=== PATIENT | male | born 1990 | race African-American/Black ===

== ENCOUNTER 2018-03-07 23:05 | Inpatient (IN) | payer SELFPAY ==
[2018-03-08] MEDS: MORPHINE 4 MG/ML 1ML VIAL/SYRINGE (J2270) IV ×11 (00:25→22:02)
[2018-03-08] MEDS: NS 1,000 ML IV ×5 (00:26→21:12)
[2018-03-08 00:49] LABS: ALBUMIN 3.9 GM/DL (3.2-5.2); ALBUMIN/GLOBULIN RATIO 1.05 (1.00-1.93); ALKALINE PHOSPHATASE 77 U/L (45-117); ALT/SGPT 37 U/L (12-78); AMYLASE 81 U/L (25-115); ANION GAP 12 MEQ/L (8-16); AST/SGOT 52 U/L (7-37); BILIRUBIN,DIRECT 0.1 MG/DL (0.0-0.2); BILIRUBIN,TOTAL 0.4 MG/DL (0.2-1.0); BLOOD UREA NITROGEN 6 MG/DL (7-18); CALCIUM LEVEL 8.8 MG/DL (8.5-10.1); CARBON DIOXIDE LEVEL 20 MEQ/L (21-32); CHLORIDE LEVEL 107 MEQ/L (98-107); CREATININE FOR GFR 1.04 MG/DL (0.70-1.30); GLOMERULAR FILTRATION RATE > 60.0 (>60); GLUCOSE, FASTING 161 MG/DL (70-100); LIPASE 113 U/L (73-393); POTASSIUM SERUM 4.1 MEQ/L (3.5-5.1); SODIUM LEVEL 139 MEQ/L (136-145); TOTAL PROTEIN 7.6 GM/DL (6.4-8.2)
[2018-03-08] MEDS ORDERED: ISOVUE-370 76% 100ML VIAL (Q9967) As Ordered (01:01)
[2018-03-08 01:17] LABS: BASO % 0.3 % (0.0-1.0); EOS # 0.1 10^3/uL (0.0-0.50); EOS % 0.8 % (0.0-3.0); HEMATOCRIT 39.8 % (42.0-52.0); HEMOGLOBIN 14.6 g/dl (13.5-17.5); IMMATURE GRANULOCYTE % 0.9 % (0-3.0); LYMPH # 2.6 10^3/uL (1.5-6.5); LYMPH % 28.3 % (24.0-44.0); MEAN CORPUSCULAR HGB CONC 36.7 g/dl (32.0-36.5); MONO # 0.7 10^3/uL (0.0-0.8); MONO % 7.4 % (0.0-5.0); NEUTROPHILS # 5.7 10^3/uL (1.8-7.7); NEUTROPHILS % 62.3 % (36.0-66.0); PLATELET COUNT, AUTOMATED 280 10^3/uL (150-450); RED BLOOD COUNT 4.06 10^6/uL (4.30-6.10); RED CELL DISTRIBUTION WIDTH 14.1 % (11.5-14.5); WHITE BLOOD COUNT 9.2 10^3/uL (4.0-10.0)
[2018-03-08] MEDS: HYDROMORPHONE HCL 0.5 MG/ 0.5 ML SYRINGE (J1170 PER 1) IV (02:11)
[2018-03-08 02:16] LABS: KETONE, URINE AUTO RFX NEGATIVE (NEGATIVE); LEUKOCYTE ESTERASE UR AUTO RFX NEGATIVE (NEGATIVE); NITRITE, URINE AUTO RFX NEGATIVE (NEGATIVE); RBC, URINE AUTO RFX 1 /HPF (0-3); SPECIFIC GRAVITY UR AUTO RFX 1.049 (1.002-1.035); SQUAM EPITHELIAL CELL UR AURFX 0 /HPF (0-6); WBC, URINE AUTO RFX 0 /HPF (0-3)
[2018-03-08] MEDS: KETOROLAC 30 MG/ML VIAL (J1885) IV ×3 (03:22→23:35)
[2018-03-08 07:45] LABS: LACTIC ACID SEPSIS PROTOCOL 1.4 MMOL/L (0.4-2.0)
[2018-03-08 07:45] LABS: CHOLESTEROL LEVEL 230 MG/DL (<200); CHOLESTEROL RISK RATIO 3.194 (<5); HDL CHOLESTEROL 72 MG/DL (>40); LDL CHOLESTEROL 91.6 MG/DL (<100); NON-HDL-C 158 MG/DL; TRIGLYCERIDES LEVEL 332 MG/DL (<150)
[2018-03-08] MEDS: BACITRACIN OINT 30GM TOP ×2 (09:00→21:17)
[2018-03-08 11:52] LABS: AMYLASE 70 U/L (25-115); LIPASE 101 U/L (73-393)
[2018-03-08 12:28] LABS: AMPHETAMINES LEVEL URINE NEGATIVE (NEGATIVE); BARBITURATES URINE NEGATIVE (NEGATIVE); BENZODIAZEPINES URINE NEGATIVE (NEGATIVE); CANNABINOIDS URINE POSITIVE (NEGATIVE); COCAINE METABOLITE URINE NEGATIVE (NEGATIVE); METHADONE URINE NEGATIVE (NEGATIVE); OPIATES URINE POSITIVE (NEGATIVE); PHENCYCLIDINE URINE NEGATIVE (NEGATIVE)
[2018-03-08] MEDS ORDERED: PERCOCET 5MG/325MG TAB PO (12:45)
[2018-03-08] MEDS: ONDANSETRON 4MG/2ML VIAL (J2405) IV ×2 (13:01→22:02)
[2018-03-08] MEDS: PERCOCET 5MG/325MG TAB PO ×3 (13:03→21:18)
[2018-03-08] MEDS: LISINOPRIL 10 MG TAB PO (15:15)
[2018-03-08] MEDS: METOCLOPRAMIDE INJ 10MG/2ML VIAL (J2765) IV (17:15)
[2018-03-09] MEDS: MORPHINE 4 MG/ML 1ML VIAL/SYRINGE (J2270) IV ×8 (00:14→22:07)
[2018-03-09] MEDS: PERCOCET 5MG/325MG TAB PO ×6 (01:16→23:48)
[2018-03-09 06:06] LABS: HEMATOCRIT 36.4 % (42.0-52.0); HEMOGLOBIN 12.8 g/dl (13.5-17.5); MEAN CORPUSCULAR HEMOGLOBIN 35.5 pg (27.0-33.0); MEAN CORPUSCULAR HGB CONC 35.2 g/dl (32.0-36.5); MEAN CORPUSCULAR VOLUME 100.8 fl (80.0-96.0); PLATELET COUNT, AUTOMATED 241 10^3/uL (150-450); RED BLOOD COUNT 3.61 10^6/uL (4.30-6.10); RED CELL DISTRIBUTION WIDTH 14.4 % (11.5-14.5)
[2018-03-09] MEDS: ONDANSETRON 4MG/2ML VIAL (J2405) IV ×5 (06:07→23:53)
[2018-03-09 06:21] LABS: ANION GAP 7 MEQ/L (8-16); BLOOD UREA NITROGEN 5 MG/DL (7-18); CALCIUM LEVEL 8.3 MG/DL (8.5-10.1); CARBON DIOXIDE LEVEL 24 MEQ/L (21-32); CHLORIDE LEVEL 111 MEQ/L (98-107); CREATININE FOR GFR 0.84 MG/DL (0.70-1.30); GLOMERULAR FILTRATION RATE > 60.0 (>60); GLUCOSE, FASTING 95 MG/DL (70-100); LIPASE 225 U/L (73-393); POTASSIUM SERUM 3.8 MEQ/L (3.5-5.1); SODIUM LEVEL 142 MEQ/L (136-145)
[2018-03-09] MEDS: NS 1,000 ML IV ×2 (06:46→17:03)
[2018-03-09] MEDS: BACITRACIN OINT 30GM TOP ×2 (07:56→19:49)
[2018-03-09] MEDS: LISINOPRIL 10 MG TAB PO (07:56)
[2018-03-09] MEDS ORDERED: ISOVUE-370 76% 100ML VIAL (Q9967) As Ordered (08:04)
[2018-03-09] MEDS: KETOROLAC 30 MG/ML VIAL (J1885) IV ×2 (10:49→17:01)
[2018-03-10] MEDS: PERCOCET 5MG/325MG TAB PO ×5 (05:58→22:37)
[2018-03-10] MEDS: ONDANSETRON 4MG/2ML VIAL (J2405) IV ×2 (05:58→10:00)
[2018-03-10] MEDS: NS 1,000 ML IV ×3 (07:00→22:39)
[2018-03-10 08:08] LABS: HEMATOCRIT 36.1 % (42.0-52.0); HEMOGLOBIN 12.7 g/dl (13.5-17.5); MEAN CORPUSCULAR HEMOGLOBIN 35.5 pg (27.0-33.0); MEAN CORPUSCULAR HGB CONC 35.2 g/dl (32.0-36.5); MEAN CORPUSCULAR VOLUME 100.8 fl (80.0-96.0); PLATELET COUNT, AUTOMATED 242 10^3/uL (150-450); RED BLOOD COUNT 3.58 10^6/uL (4.30-6.10); RED CELL DISTRIBUTION WIDTH 14.4 % (11.5-14.5); WHITE BLOOD COUNT 8.7 10^3/uL (4.0-10.0)
[2018-03-10 08:56] LABS: ALBUMIN 3.4 GM/DL (3.2-5.2); ALBUMIN/GLOBULIN RATIO 0.92 (1.00-1.93); ALKALINE PHOSPHATASE 48 U/L (45-117); ALT/SGPT 26 U/L (12-78); ANION GAP 10 MEQ/L (8-16); AST/SGOT 40 U/L (7-37); BILIRUBIN,TOTAL 0.6 MG/DL (0.2-1.0); BLOOD UREA NITROGEN 5 MG/DL (7-18); CALCIUM LEVEL 8.2 MG/DL (8.5-10.1); CARBON DIOXIDE LEVEL 25 MEQ/L (21-32); CHLORIDE LEVEL 105 MEQ/L (98-107); CREATININE FOR GFR 0.82 MG/DL (0.70-1.30); GLOMERULAR FILTRATION RATE > 60.0 (>60); GLUCOSE, FASTING 82 MG/DL (70-100); LIPASE 96 U/L (73-393); POTASSIUM SERUM 3.4 MEQ/L (3.5-5.1); SODIUM LEVEL 140 MEQ/L (136-145); TOTAL PROTEIN 7.1 GM/DL (6.4-8.2)
[2018-03-10] MEDS: LISINOPRIL 10 MG TAB PO (09:34)
[2018-03-10] MEDS: BACITRACIN OINT 30GM TOP ×2 (09:34→21:27)
[2018-03-10] MEDS: MORPHINE 4 MG/ML 1ML VIAL/SYRINGE (J2270) IV (09:35)
[2018-03-10 14:41] LABS: BEDSIDE GLUCOSE 176 MG/DL (70-105)
[2018-03-10] MEDS: NICOTINE 21MG/24HR 1 EA TRANSDERMAL TD (18:20)
[2018-03-10] MEDS: ONDANSETRON 4 MG TAB (S0181) PO (18:20)
[2018-03-11] MEDS: PERCOCET 5MG/325MG TAB PO ×3 (04:20→12:57)
[2018-03-11 06:39] LABS: HEMATOCRIT 33.2 % (42.0-52.0); HEMOGLOBIN 11.9 g/dl (13.5-17.5); MEAN CORPUSCULAR HEMOGLOBIN 35.3 pg (27.0-33.0); MEAN CORPUSCULAR HGB CONC 35.8 g/dl (32.0-36.5); MEAN CORPUSCULAR VOLUME 98.5 fl (80.0-96.0); PLATELET COUNT, AUTOMATED 261 10^3/uL (150-450); RED BLOOD COUNT 3.37 10^6/uL (4.30-6.10); RED CELL DISTRIBUTION WIDTH 14.1 % (11.5-14.5); WHITE BLOOD COUNT 6.2 10^3/uL (4.0-10.0)
[2018-03-11 07:06] LABS: ANION GAP 9 MEQ/L (8-16); BLOOD UREA NITROGEN 3 MG/DL (7-18); CALCIUM LEVEL 7.9 MG/DL (8.5-10.1); CARBON DIOXIDE LEVEL 26 MEQ/L (21-32); CHLORIDE LEVEL 106 MEQ/L (98-107); CREATININE FOR GFR 0.77 MG/DL (0.70-1.30); GLOMERULAR FILTRATION RATE > 60.0 (>60); GLUCOSE, FASTING 84 MG/DL (70-100); POTASSIUM SERUM 3.4 MEQ/L (3.5-5.1); SODIUM LEVEL 141 MEQ/L (136-145)
[2018-03-11] MEDS: NICOTINE 21MG/24HR 1 EA TRANSDERMAL TD (08:55)
[2018-03-11] MEDS: BACITRACIN OINT 30GM TOP (08:55)
[2018-03-11] MEDS: LISINOPRIL 10 MG TAB PO (15:46)
== END 2018-03-11 17:20 | disposition home health service (06) | DRG 282 ==
LOC: M ED 23:05 → M MS5PR 03-10 18:30 → M ED INP 03-08 02:29 → M MS5PR 03-08 10:10
PROVIDERS: Internal Medicine
DX: K85.90 Acute pancreatitis without necrosis or infection, unspecified (principal); K76.89 Other specified diseases of liver; E66.01 Morbid (severe) obesity due to excess calories; R03.0 Elevated blood-pressure reading, without diagnosis of hypertension; Z68.38 Body mass index [BMI] 38.0-38.9, adult; K86.0 Alcohol-induced chronic pancreatitis

== ENCOUNTER 2018-06-04 14:10 | Inpatient (IN) | payer SELFPAY ==
[2018-06-04] MEDS: NS 1,000 ML IV (15:02)
[2018-06-04] MEDS: ONDANSETRON 4MG/2ML VIAL (J2405) IV (15:04)
[2018-06-04] MEDS: MORPHINE 4 MG/ML 1ML VIAL/SYRINGE (J2270) IV ×3 (15:07→16:57)
[2018-06-04 15:32] LABS: BASO # 0.1 10^3/uL (0.0-0.2); BASO % 0.4 % (0.0-1.0); EOS # 0.2 10^3/uL (0.0-0.50); EOS % 1.5 % (0.0-3.0); HEMATOCRIT 37.9 % (42.0-52.0); HEMOGLOBIN 13.4 g/dl (13.5-17.5); IMMATURE GRANULOCYTE % 0.7 % (0-3.0); LYMPH % 15.9 % (24.0-44.0); MEAN CORPUSCULAR HGB CONC 35.4 g/dl (32.0-36.5); MEAN CORPUSCULAR VOLUME 104.7 fl (80.0-96.0); MONO # 0.7 10^3/uL (0.0-0.8); MONO % 5.9 % (0.0-5.0); NEUTROPHILS # 9.3 10^3/uL (1.8-7.7); NEUTROPHILS % 75.6 % (36.0-66.0); PLATELET COUNT, AUTOMATED 280 10^3/uL (150-450); RED BLOOD COUNT 3.62 10^6/uL (4.30-6.10); RED CELL DISTRIBUTION WIDTH 15.1 % (11.5-14.5); WHITE BLOOD COUNT 12.3 10^3/uL (4.0-10.0)
[2018-06-04 15:42] LABS: INR 0.98
[2018-06-04 15:43] LABS: PARTIAL THROMBOPLASTIN TIME 26.1 SECONDS (25.4-37.6)
[2018-06-04 16:04] LABS: LACTIC ACID SEPSIS PROTOCOL 2.2 MMOL/L (0.4-2.0)
[2018-06-04 16:18] LABS: ALBUMIN 3.9 GM/DL (3.2-5.2); ALBUMIN/GLOBULIN RATIO 1.11 (1.00-1.93); ALKALINE PHOSPHATASE 58 U/L (45-117); ALT/SGPT 45 U/L (12-78); AMYLASE 112 U/L (25-115); ANION GAP 13 MEQ/L (8-16); AST/SGOT 53 U/L (7-37); BILIRUBIN,DIRECT 0.2 MG/DL (0.0-0.2); BILIRUBIN,TOTAL 0.5 MG/DL (0.2-1.0); BLOOD UREA NITROGEN 8 MG/DL (7-18); CALCIUM LEVEL 9.1 MG/DL (8.5-10.1); CARBON DIOXIDE LEVEL 21 MEQ/L (21-32); CHLORIDE LEVEL 103 MEQ/L (98-107); CK-MB VALUE MASS < 1.0 NG/ML (<3.6); CPK CREATINE PHOSPHOKINASE 356 U/L (39-308); CREATININE FOR GFR 0.97 MG/DL (0.70-1.30); ETHYL ALCOHOL (ETHANOL) 0.051 % (0.000-0.010); GLOMERULAR FILTRATION RATE > 60.0 (>60); GLUCOSE, FASTING 138 MG/DL (70-100); LIPASE 1526 U/L (73-393); MB/CK RELATIVE INDEX 0.28 (< OR =4); SODIUM LEVEL 137 MEQ/L (136-145); TOTAL PROTEIN 7.4 GM/DL (6.4-8.2); TROPONIN I < 0.02 NG/ML (< 0.10)
[2018-06-04] MEDS ORDERED: ISOVUE-370 76% 100ML VIAL (Q9967) As Ordered (16:24)
[2018-06-04 16:27] LABS: AMPHETAMINES LEVEL URINE NEGATIVE (NEGATIVE); BARBITURATES URINE NEGATIVE (NEGATIVE); BENZODIAZEPINES URINE NEGATIVE (NEGATIVE); CANNABINOIDS URINE POSITIVE (NEGATIVE); COCAINE METABOLITE URINE NEGATIVE (NEGATIVE); METHADONE URINE NEGATIVE (NEGATIVE); OPIATES URINE POSITIVE (NEGATIVE); PHENCYCLIDINE URINE NEGATIVE (NEGATIVE)
[2018-06-04] MEDS: KCL 20MEQ in NS 1000ML 1,000 ML IV ×3 (16:49→21:01)
[2018-06-04 17:01] LABS: MAGNESIUM LEVEL 1.7 MG/DL (1.8-2.4)
[2018-06-04] MEDS ORDERED: HYDROMORPHONE HCL 0.5 MG/ 0.5 ML SYRINGE (J1170 PER 1) IV (17:45)
[2018-06-04] MEDS: HYDROmorphone HCL 2 MG/ML 1ML VIAL (J1170) IV ×2 (18:38→21:31)
[2018-06-04] MEDS: MAG SULF 1GM/100ML (MAG RUN) 1 GM in APPROPRIATE DILUENT 1 EA IV (18:38)
[2018-06-04] MEDS: MULTIVITAMINS/MINERALS THERAP 1 TAB PO (18:39)
[2018-06-04] MEDS: FOLIC ACID 1 MG TAB PO (18:39)
[2018-06-04] MEDS: THIAMINE 100 MG TAB PO (18:39)
[2018-06-04 18:50] LABS: FERRITIN 438 NG/ML (26-388); IRON (FE) 34 UG/DL (65-175); PERCENT SATURATION 12.6 % (19.7-50.0); TOTAL IRON BINDING CAPACITY 270 UG/DL (250-450)
[2018-06-04 18:57] LABS: FOLATE 9.1 NG/ML; VITAMIN B12 LEVEL 432 PG/ML
[2018-06-04 19:27] LABS: ERYTHROCYTE SEDIMENTATION RATE 25 mm/hr (0-15)
[2018-06-04 19:51] LABS: CHOLESTEROL LEVEL 237 MG/DL (<200); CHOLESTEROL RISK RATIO 1.781 (<5); HDL CHOLESTEROL 133 MG/DL (>40); LDL CHOLESTEROL 81 MG/DL (<100); NON-HDL-C 104 MG/DL; TRIGLYCERIDES LEVEL 115 MG/DL (<150)
[2018-06-04] MEDS ORDERED: INFLUENZA QUADRIVALENT PF VACCINE 0.5ML SYRINGE (90686) IM (20:00)
[2018-06-04] MEDS: LORazepam 2 MG TAB PO (21:01)
[2018-06-04 23:33] LABS: CK-MB VALUE MASS < 1.0 NG/ML (<3.6); CPK CREATINE PHOSPHOKINASE 308 U/L (39-308); MB/CK RELATIVE INDEX 0.32 (< OR =4); TROPONIN I < 0.02 NG/ML (< 0.10)
[2018-06-05] MEDS: HYDROmorphone HCL 2 MG/ML 1ML VIAL (J1170) IV ×8 (00:30→23:19)
[2018-06-05] MEDS: LORazepam 2 MG TAB PO ×2 (01:20→20:55)
[2018-06-05] MEDS: KCL 20MEQ in NS 1000ML 1,000 ML IV ×2 (01:20→07:00)
[2018-06-05] MEDS: **hydrALAZINE HCL** 25 MG TAB PO (02:52)
[2018-06-05 07:09] LABS: BASO % 0.2 % (0.0-1.0); EOS # 0.1 10^3/uL (0.0-0.50); EOS % 0.7 % (0.0-3.0); HEMATOCRIT 37.4 % (42.0-52.0); LYMPH % 9.5 % (24.0-44.0); MEAN CORPUSCULAR HEMOGLOBIN 37.7 pg (27.0-33.0); MEAN CORPUSCULAR HGB CONC 34.8 g/dl (32.0-36.5); MEAN CORPUSCULAR VOLUME 108.4 fl (80.0-96.0); MONO # 0.6 10^3/uL (0.0-0.8); MONO % 5.9 % (0.0-5.0); NEUTROPHILS # 8.8 10^3/uL (1.8-7.7); NEUTROPHILS % 82.7 % (36.0-66.0); PLATELET COUNT, AUTOMATED 263 10^3/uL (150-450); RED BLOOD COUNT 3.45 10^6/uL (4.30-6.10); WHITE BLOOD COUNT 10.6 10^3/uL (4.0-10.0)
[2018-06-05 07:37] LABS: ALBUMIN 3.7 GM/DL (3.2-5.2); ALBUMIN/GLOBULIN RATIO 1.06 (1.00-1.93); ALKALINE PHOSPHATASE 47 U/L (45-117); ALT/SGPT 37 U/L (12-78); ANION GAP 9 MEQ/L (8-16); AST/SGOT 45 U/L (7-37); BILIRUBIN,TOTAL 0.5 MG/DL (0.2-1.0); BLOOD UREA NITROGEN 9 MG/DL (7-18); CALCIUM LEVEL 8.2 MG/DL (8.5-10.1); CARBON DIOXIDE LEVEL 21 MEQ/L (21-32); CHLORIDE LEVEL 109 MEQ/L (98-107); CPK CREATINE PHOSPHOKINASE 281 U/L (39-308); CREATININE FOR GFR 0.86 MG/DL (0.70-1.30); GLOMERULAR FILTRATION RATE > 60.0 (>60); GLUCOSE, FASTING 114 MG/DL (70-100); LIPASE 3089 U/L (73-393); MB/CK RELATIVE INDEX 0.39 (< OR =4); POTASSIUM SERUM 4.2 MEQ/L (3.5-5.1); SODIUM LEVEL 139 MEQ/L (136-145); TOTAL PROTEIN 7.2 GM/DL (6.4-8.2); TROPONIN I < 0.02 NG/ML (< 0.10)
[2018-06-05] MEDS: MULTIVITAMINS/MINERALS THERAP 1 TAB PO (07:55)
[2018-06-05] MEDS: LISINOPRIL 5 MG TAB PO ×2 (07:55→09:13)
[2018-06-05] MEDS: THIAMINE 100 MG TAB PO (07:56)
[2018-06-05] MEDS: ENOXAPARIN 40 MG/0.4 ML SYRINGE (J1650) SC (07:56)
[2018-06-05] MEDS: FOLIC ACID 1 MG TAB PO (07:56)
[2018-06-05] MEDS ORDERED: ONDANSETRON 4MG/2ML VIAL (J2405) IV (08:00)
[2018-06-05] MEDS: HYDROMORPHONE HCL 0.5 MG/ 0.5 ML SYRINGE (J1170 PER 1) IV (08:44)
[2018-06-05] MEDS: NS 1,000 ML IV ×4 (09:13→20:55)
[2018-06-05] MEDS: ONDANSETRON 4MG/2ML VIAL (J2405) IV ×2 (11:44→18:15)
[2018-06-05 15:57] LABS: CPK CREATINE PHOSPHOKINASE 284 U/L (39-308); MB/CK RELATIVE INDEX 0.35 (< OR =4); TROPONIN I < 0.02 NG/ML (< 0.10)
[2018-06-05] MEDS: CHLORASEPTIC SPRAY MT ×2 (20:03→23:19)
[2018-06-05] MEDS: LISINOPRIL 10 MG TAB PO (20:05)
[2018-06-05] MEDS ORDERED: NALOXONE INJ 0.4 MG/1 ML VIAL (J2310) IV (23:45)
[2018-06-06] MEDS: NS 1,000 ML IV ×4 (00:48→21:23)
[2018-06-06] MEDS: ONDANSETRON 4MG/2ML VIAL (J2405) IV ×3 (01:05→15:05)
[2018-06-06] MEDS: HYDROmorphone HCL 2 MG/ML 1ML VIAL (J1170) IV ×5 (03:04→15:05)
[2018-06-06] MEDS: **hydrALAZINE HCL** 25 MG TAB PO ×3 (03:21→21:26)
[2018-06-06] MEDS: LORazepam 2 MG TAB PO (04:36)
[2018-06-06 05:15] LABS: BASO % 0.2 % (0.0-1.0); EOS # 0.2 10^3/uL (0.0-0.50); EOS % 1.7 % (0.0-3.0); HEMATOCRIT 35.3 % (42.0-52.0); HEMOGLOBIN 12.2 g/dl (13.5-17.5); IMMATURE GRANULOCYTE % 0.7 % (0-3.0); LYMPH # 1.1 10^3/uL (1.5-6.5); LYMPH % 11.2 % (24.0-44.0); MEAN CORPUSCULAR HEMOGLOBIN 38.2 pg (27.0-33.0); MEAN CORPUSCULAR HGB CONC 34.6 g/dl (32.0-36.5); MEAN CORPUSCULAR VOLUME 110.7 fl (80.0-96.0); MONO # 0.8 10^3/uL (0.0-0.8); MONO % 8.5 % (0.0-5.0); NEUTROPHILS # 7.3 10^3/uL (1.8-7.7); NEUTROPHILS % 77.7 % (36.0-66.0); PLATELET COUNT, AUTOMATED 259 10^3/uL (150-450); RED BLOOD COUNT 3.19 10^6/uL (4.30-6.10); RED CELL DISTRIBUTION WIDTH 16.4 % (11.5-14.5); WHITE BLOOD COUNT 9.4 10^3/uL (4.0-10.0)
[2018-06-06 05:37] LABS: ALBUMIN 3.4 GM/DL (3.2-5.2); ALBUMIN/GLOBULIN RATIO 0.94 (1.00-1.93); ALKALINE PHOSPHATASE 47 U/L (45-117); ALT/SGPT 34 U/L (12-78); ANION GAP 6 MEQ/L (8-16); AST/SGOT 51 U/L (7-37); BILIRUBIN,TOTAL 0.4 MG/DL (0.2-1.0); BLOOD UREA NITROGEN 7 MG/DL (7-18); C REACTIVE PROTEIN QUANTITATIV 9.47 MG/DL (0.00-0.30); CALCIUM LEVEL 8.1 MG/DL (8.5-10.1); CARBON DIOXIDE LEVEL 22 MEQ/L (21-32); CHLORIDE LEVEL 108 MEQ/L (98-107); CREATININE FOR GFR 0.64 MG/DL (0.70-1.30); GLOMERULAR FILTRATION RATE > 60.0 (>60); GLUCOSE, FASTING 87 MG/DL (70-100); LIPASE 1643 U/L (73-393); MAGNESIUM LEVEL 2.1 MG/DL (1.8-2.4); POTASSIUM SERUM 3.9 MEQ/L (3.5-5.1); SODIUM LEVEL 136 MEQ/L (136-145)
[2018-06-06] MEDS: FOLIC ACID 1 MG TAB PO (08:06)
[2018-06-06] MEDS: MULTIVITAMINS/MINERALS THERAP 1 TAB PO (08:08)
[2018-06-06] MEDS: LISINOPRIL 10 MG TAB PO ×2 (08:12→21:28)
[2018-06-06] MEDS: amLODIPine 5 MG TAB PO (08:12)
[2018-06-06] MEDS: THIAMINE 100 MG TAB PO (08:13)
[2018-06-06] MEDS ORDERED: LISINOPRIL 10 MG TAB PO (09:00)
[2018-06-06] MEDS: ENOXAPARIN 40 MG/0.4 ML SYRINGE (J1650) SC (09:12)
[2018-06-06] MEDS: HYDROMORPHONE HCL 0.5 MG/ 0.5 ML SYRINGE (J1170 PER 1) IV ×2 (18:01→21:25)
[2018-06-07] MEDS: HYDROMORPHONE HCL 0.5 MG/ 0.5 ML SYRINGE (J1170 PER 1) IV ×4 (00:37→09:36)
[2018-06-07] MEDS: NS 1,000 ML IV ×3 (00:45→16:40)
[2018-06-07] MEDS: ONDANSETRON 4MG/2ML VIAL (J2405) IV ×3 (04:10→21:14)
[2018-06-07] MEDS: **hydrALAZINE HCL** 25 MG TAB PO (05:06)
[2018-06-07 06:33] LABS: BASO % 0.1 % (0.0-1.0); EOS # 0.2 10^3/uL (0.0-0.50); EOS % 2.1 % (0.0-3.0); HEMATOCRIT 34.1 % (42.0-52.0); HEMOGLOBIN 11.8 g/dl (13.5-17.5); IMMATURE GRANULOCYTE % 0.5 % (0-3.0); LYMPH # 1.3 10^3/uL (1.5-6.5); LYMPH % 15.4 % (24.0-44.0); MEAN CORPUSCULAR HEMOGLOBIN 36.9 pg (27.0-33.0); MEAN CORPUSCULAR HGB CONC 34.6 g/dl (32.0-36.5); MEAN CORPUSCULAR VOLUME 106.6 fl (80.0-96.0); MONO # 0.7 10^3/uL (0.0-0.8); MONO % 7.9 % (0.0-5.0); NEUTROPHILS # 6.1 10^3/uL (1.8-7.7); PLATELET COUNT, AUTOMATED 299 10^3/uL (150-450); RED CELL DISTRIBUTION WIDTH 15.6 % (11.5-14.5); WHITE BLOOD COUNT 8.2 10^3/uL (4.0-10.0)
[2018-06-07 06:58] LABS: ALBUMIN 3.2 GM/DL (3.2-5.2); ALBUMIN/GLOBULIN RATIO 0.84 (1.00-1.93); ALKALINE PHOSPHATASE 51 U/L (45-117); ALT/SGPT 38 U/L (12-78); ANION GAP 9 MEQ/L (8-16); AST/SGOT 54 U/L (7-37); BILIRUBIN,TOTAL 0.5 MG/DL (0.2-1.0); BLOOD UREA NITROGEN 3 MG/DL (7-18); C REACTIVE PROTEIN QUANTITATIV 4.08 MG/DL (0.00-0.30); CALCIUM LEVEL 8.4 MG/DL (8.5-10.1); CARBON DIOXIDE LEVEL 24 MEQ/L (21-32); CHLORIDE LEVEL 103 MEQ/L (98-107); CREATININE FOR GFR 0.57 MG/DL (0.70-1.30); GLOMERULAR FILTRATION RATE > 60.0 (>60); GLUCOSE, FASTING 101 MG/DL (70-100); LIPASE 712 U/L (73-393); POTASSIUM SERUM 3.4 MEQ/L (3.5-5.1); SODIUM LEVEL 136 MEQ/L (136-145)
[2018-06-07] MEDS: ENOXAPARIN 40 MG/0.4 ML SYRINGE (J1650) SC (09:36)
[2018-06-07] MEDS: FOLIC ACID 1 MG TAB PO (09:37)
[2018-06-07] MEDS: POTASSIUM CHLORIDE 10 MEQ SR TABLET PO ×2 (09:37→11:15)
[2018-06-07] MEDS: MULTIVITAMINS/MINERALS THERAP 1 TAB PO (09:37)
[2018-06-07] MEDS: THIAMINE 100 MG TAB PO (09:37)
[2018-06-07] MEDS: CARVedilol 12.5 MG TAB PO ×2 (09:40→21:15)
[2018-06-07] MEDS: amLODIPine 5 MG TAB PO (09:40)
[2018-06-07] MEDS: LISINOPRIL 10 MG TAB PO ×2 (09:41→21:15)
[2018-06-07] MEDS ORDERED: DOCUSATE SODIUM 100 MG CAP PO (09:45)
[2018-06-07] MEDS: BISACODYL 5 MG TAB PO (11:15)
[2018-06-07] MEDS: HYDROmorphone HCL 2 MG/ML 1ML VIAL (J1170) IV ×4 (13:34→23:18)
[2018-06-07] MEDS: RAMELTEON 8 MG TAB (ROZEREM) PO (22:19)
[2018-06-07] MEDS: SODIUM CHLORIDE NASAL 0.65% SPRAY BTL (OCEAN) (22:20)
[2018-06-08] MEDS: NS 1,000 ML IV ×2 (00:46→06:45)
[2018-06-08] MEDS: LORazepam 2 MG/ML VIAL (J2060) IV ×2 (02:01→12:06)
[2018-06-08] MEDS: HYDROMORPHONE HCL 0.5 MG/ 0.5 ML SYRINGE (J1170 PER 1) IV ×3 (02:41→09:57)
[2018-06-08 06:38] LABS: BASO % 0.3 % (0.0-1.0); EOS # 0.2 10^3/uL (0.0-0.50); EOS % 2.2 % (0.0-3.0); HEMATOCRIT 33.1 % (42.0-52.0); HEMOGLOBIN 11.5 g/dl (13.5-17.5); IMMATURE GRANULOCYTE % 0.5 % (0-3.0); LYMPH # 1.5 10^3/uL (1.5-6.5); LYMPH % 18.8 % (24.0-44.0); MEAN CORPUSCULAR HEMOGLOBIN 37.2 pg (27.0-33.0); MEAN CORPUSCULAR HGB CONC 34.7 g/dl (32.0-36.5); MEAN CORPUSCULAR VOLUME 107.1 fl (80.0-96.0); MONO # 0.8 10^3/uL (0.0-0.8); MONO % 10.3 % (0.0-5.0); NEUTROPHILS # 5.4 10^3/uL (1.8-7.7); NEUTROPHILS % 67.9 % (36.0-66.0); PLATELET COUNT, AUTOMATED 308 10^3/uL (150-450); RED BLOOD COUNT 3.09 10^6/uL (4.30-6.10); RED CELL DISTRIBUTION WIDTH 15.3 % (11.5-14.5); WHITE BLOOD COUNT 7.9 10^3/uL (4.0-10.0)
[2018-06-08 07:08] LABS: ALBUMIN 2.9 GM/DL (3.2-5.2); ALBUMIN/GLOBULIN RATIO 0.81 (1.00-1.93); ALKALINE PHOSPHATASE 47 U/L (45-117); ALT/SGPT 38 U/L (12-78); ANION GAP 7 MEQ/L (8-16); AST/SGOT 40 U/L (7-37); BILIRUBIN,TOTAL 0.4 MG/DL (0.2-1.0); BLOOD UREA NITROGEN 2 MG/DL (7-18); C REACTIVE PROTEIN QUANTITATIV 2.62 MG/DL (0.00-0.30); CALCIUM LEVEL 8.3 MG/DL (8.5-10.1); CARBON DIOXIDE LEVEL 27 MEQ/L (21-32); CHLORIDE LEVEL 107 MEQ/L (98-107); CREATININE FOR GFR 0.63 MG/DL (0.70-1.30); GLOMERULAR FILTRATION RATE > 60.0 (>60); GLUCOSE, FASTING 94 MG/DL (70-100); MAGNESIUM LEVEL 1.9 MG/DL (1.8-2.4); POTASSIUM SERUM 3.3 MEQ/L (3.5-5.1); SODIUM LEVEL 141 MEQ/L (136-145); TOTAL PROTEIN 6.5 GM/DL (6.4-8.2)
[2018-06-08] MEDS: THIAMINE 100 MG TAB PO (09:28)
[2018-06-08] MEDS: ENOXAPARIN 40 MG/0.4 ML SYRINGE (J1650) SC (09:28)
[2018-06-08] MEDS: POTASSIUM CHLORIDE 10 MEQ SR TABLET PO (09:28)
[2018-06-08] MEDS: BISACODYL 5 MG TAB PO (09:28)
[2018-06-08] MEDS: LISINOPRIL 10 MG TAB PO ×2 (09:29→21:05)
[2018-06-08] MEDS: MULTIVITAMINS/MINERALS THERAP 1 TAB PO (09:29)
[2018-06-08] MEDS: FOLIC ACID 1 MG TAB PO (09:29)
[2018-06-08] MEDS: amLODIPine 5 MG TAB PO (09:29)
[2018-06-08] MEDS: CARVedilol 12.5 MG TAB PO ×2 (09:30→21:05)
[2018-06-08] MEDS: ONDANSETRON 4MG/2ML VIAL (J2405) IV ×2 (09:57→16:53)
[2018-06-08] MEDS: CREON-12 CAPSULE PO ×2 (13:42→16:52)
[2018-06-08] MEDS: HYDROmorphone HCL 2 MG/ML 1ML VIAL (J1170) IV ×4 (13:43→23:07)
[2018-06-08] MEDS: PANTOPRAZOLE 40MG TAB (PROTONIX) PO (16:52)
[2018-06-08] MEDS: RAMELTEON 8 MG TAB (ROZEREM) PO (21:05)
[2018-06-09] MEDS: HYDROmorphone HCL 2 MG/ML 1ML VIAL (J1170) IV ×3 (02:15→08:29)
[2018-06-09] MEDS: ONDANSETRON 4MG/2ML VIAL (J2405) IV ×3 (02:19→16:31)
[2018-06-09 06:44] LABS: BASO % 0.4 % (0.0-1.0); EOS # 0.2 10^3/uL (0.0-0.50); EOS % 2.1 % (0.0-3.0); HEMATOCRIT 33.5 % (42.0-52.0); HEMOGLOBIN 11.7 g/dl (13.5-17.5); IMMATURE GRANULOCYTE % 0.7 % (0-3.0); LYMPH # 1.6 10^3/uL (1.5-6.5); LYMPH % 21.3 % (24.0-44.0); MEAN CORPUSCULAR HEMOGLOBIN 36.7 pg (27.0-33.0); MEAN CORPUSCULAR HGB CONC 34.9 g/dl (32.0-36.5); MONO # 0.9 10^3/uL (0.0-0.8); MONO % 12.7 % (0.0-5.0); NEUTROPHILS # 4.6 10^3/uL (1.8-7.7); NEUTROPHILS % 62.8 % (36.0-66.0); PLATELET COUNT, AUTOMATED 358 10^3/uL (150-450); RED BLOOD COUNT 3.19 10^6/uL (4.30-6.10); RED CELL DISTRIBUTION WIDTH 14.9 % (11.5-14.5); WHITE BLOOD COUNT 7.3 10^3/uL (4.0-10.0)
[2018-06-09 07:14] LABS: ALBUMIN 3.2 GM/DL (3.2-5.2); ALBUMIN/GLOBULIN RATIO 0.86 (1.00-1.93); ALKALINE PHOSPHATASE 46 U/L (45-117); ALT/SGPT 46 U/L (12-78); ANION GAP 8 MEQ/L (8-16); AST/SGOT 45 U/L (7-37); BILIRUBIN,TOTAL 0.3 MG/DL (0.2-1.0); BLOOD UREA NITROGEN 3 MG/DL (7-18); CALCIUM LEVEL 8.7 MG/DL (8.5-10.1); CARBON DIOXIDE LEVEL 27 MEQ/L (21-32); CHLORIDE LEVEL 103 MEQ/L (98-107); CREATININE FOR GFR 0.69 MG/DL (0.70-1.30); GLOMERULAR FILTRATION RATE > 60.0 (>60); GLUCOSE, FASTING 101 MG/DL (70-100); MAGNESIUM LEVEL 1.9 MG/DL (1.8-2.4); POTASSIUM SERUM 3.5 MEQ/L (3.5-5.1); SODIUM LEVEL 138 MEQ/L (136-145); TOTAL PROTEIN 6.9 GM/DL (6.4-8.2)
[2018-06-09] MEDS: LORazepam 2 MG/ML VIAL (J2060) IV (08:05)
[2018-06-09] MEDS: ENOXAPARIN 40 MG/0.4 ML SYRINGE (J1650) SC (08:29)
[2018-06-09] MEDS: PANTOPRAZOLE 40MG TAB (PROTONIX) PO (08:29)
[2018-06-09] MEDS: CREON-12 CAPSULE PO ×3 (08:29→17:50)
[2018-06-09] MEDS: amLODIPine 10 MG TAB PO (08:30)
[2018-06-09] MEDS: FOLIC ACID 1 MG TAB PO (08:30)
[2018-06-09] MEDS: MULTIVITAMINS/MINERALS THERAP 1 TAB PO (08:30)
[2018-06-09] MEDS: BISACODYL 5 MG TAB PO (08:30)
[2018-06-09] MEDS: LISINOPRIL 10 MG TAB PO ×2 (08:30→21:40)
[2018-06-09] MEDS: CARVedilol 12.5 MG TAB PO ×2 (08:30→21:40)
[2018-06-09] MEDS: THIAMINE 100 MG TAB PO (08:30)
[2018-06-09] MEDS ORDERED: PERCOCET 5MG/325MG TAB PO ×2 (09:00)
[2018-06-09] MEDS ORDERED: oxyCODONE 5MG TAB PO ×2 (09:15)
[2018-06-09] MEDS: oxyCODONE 5MG TAB PO ×4 (10:08→22:14)
[2018-06-09] MEDS: NICOTINE 7 MG/24 HR TRANSDERMAL TD (14:07)
[2018-06-09] MEDS: LORazepam 1 MG TAB PO (17:50)
[2018-06-09] MEDS: RAMELTEON 8 MG TAB (ROZEREM) PO (21:40)
[2018-06-09] MEDS: ONDANSETRON 4 MG ORAL DISINTEGRATING TAB (Q0162 PER 1MG) SL (22:14)
[2018-06-10] MEDS: oxyCODONE 5MG TAB PO ×6 (02:12→22:06)
[2018-06-10] MEDS: ONDANSETRON 4 MG ORAL DISINTEGRATING TAB (Q0162 PER 1MG) SL ×3 (05:56→18:14)
[2018-06-10 06:37] LABS: BASO % 0.3 % (0.0-1.0); EOS # 0.2 10^3/uL (0.0-0.50); EOS % 2.5 % (0.0-3.0); HEMATOCRIT 36.3 % (42.0-52.0); HEMOGLOBIN 12.5 g/dl (13.5-17.5); IMMATURE GRANULOCYTE % 0.8 % (0-3.0); LYMPH # 1.7 10^3/uL (1.5-6.5); LYMPH % 26.5 % (24.0-44.0); MEAN CORPUSCULAR HGB CONC 34.4 g/dl (32.0-36.5); MEAN CORPUSCULAR VOLUME 107.4 fl (80.0-96.0); MONO # 0.9 10^3/uL (0.0-0.8); MONO % 14.2 % (0.0-5.0); NEUTROPHILS # 3.6 10^3/uL (1.8-7.7); NEUTROPHILS % 55.7 % (36.0-66.0); PLATELET COUNT, AUTOMATED 400 10^3/uL (150-450); RED BLOOD COUNT 3.38 10^6/uL (4.30-6.10); RED CELL DISTRIBUTION WIDTH 15.3 % (11.5-14.5); WHITE BLOOD COUNT 6.5 10^3/uL (4.0-10.0)
[2018-06-10 07:06] LABS: ALBUMIN 3.1 GM/DL (3.2-5.2); ALBUMIN/GLOBULIN RATIO 0.82 (1.00-1.93); ALKALINE PHOSPHATASE 44 U/L (45-117); ALT/SGPT 46 U/L (12-78); ANION GAP 8 MEQ/L (8-16); AST/SGOT 37 U/L (7-37); BILIRUBIN,TOTAL 0.2 MG/DL (0.2-1.0); BLOOD UREA NITROGEN 4 MG/DL (7-18); CARBON DIOXIDE LEVEL 31 MEQ/L (21-32); CHLORIDE LEVEL 103 MEQ/L (98-107); CREATININE FOR GFR 0.96 MG/DL (0.70-1.30); GLOMERULAR FILTRATION RATE > 60.0 (>60); GLUCOSE, FASTING 89 MG/DL (70-100); MAGNESIUM LEVEL 2.1 MG/DL (1.8-2.4); POTASSIUM SERUM 3.3 MEQ/L (3.5-5.1); SODIUM LEVEL 142 MEQ/L (136-145); TOTAL PROTEIN 6.9 GM/DL (6.4-8.2)
[2018-06-10] MEDS: THIAMINE 100 MG TAB PO (08:50)
[2018-06-10] MEDS: CREON-12 CAPSULE PO ×3 (08:50→18:13)
[2018-06-10] MEDS: PANTOPRAZOLE 40MG TAB (PROTONIX) PO (08:50)
[2018-06-10] MEDS: ENOXAPARIN 40 MG/0.4 ML SYRINGE (J1650) SC (08:50)
[2018-06-10] MEDS: MULTIVITAMINS/MINERALS THERAP 1 TAB PO (08:50)
[2018-06-10] MEDS: FOLIC ACID 1 MG TAB PO (08:50)
[2018-06-10] MEDS: BISACODYL 5 MG TAB PO (08:51)
[2018-06-10] MEDS: CARVedilol 12.5 MG TAB PO ×2 (08:51→22:07)
[2018-06-10] MEDS: amLODIPine 10 MG TAB PO (08:51)
[2018-06-10] MEDS: POTASSIUM CHLORIDE 10 MEQ SR TABLET PO (08:52)
[2018-06-10] MEDS: LISINOPRIL 10 MG TAB PO ×2 (08:52→22:08)
[2018-06-10] MEDS: NICOTINE 7 MG/24 HR TRANSDERMAL TD (08:52)
[2018-06-10] MEDS: RAMELTEON 8 MG TAB (ROZEREM) PO (22:05)
[2018-06-11 00:30] LABS: ANCA-ATYPICAL <1:20 titer (Neg:<1:20); ANTI-SACCHAROMYCES CEREV. IgA 21.6 Units (0.0-24.9); ANTI-SACCHAROMYCES CEREV. IgG <20.0 Units (0.0-24.9); CYTOPLASMIC NEUTROP AB ANCA-C <1:20 titer (Neg:<1:20); PERINUCLEAR AB ANCA-P <1:20 titer (Neg:<1:20)
[2018-06-11] MEDS: oxyCODONE 5MG TAB PO ×4 (02:43→15:17)
[2018-06-11] MEDS: ONDANSETRON 4 MG ORAL DISINTEGRATING TAB (Q0162 PER 1MG) SL (02:43)
[2018-06-11 06:23] LABS: BASO % 0.4 % (0.0-1.0); EOS # 0.2 10^3/uL (0.0-0.50); EOS % 2.5 % (0.0-3.0); HEMATOCRIT 35.6 % (42.0-52.0); HEMOGLOBIN 12.3 g/dl (13.5-17.5); IMMATURE GRANULOCYTE % 0.6 % (0-3.0); LYMPH % 28.6 % (24.0-44.0); MEAN CORPUSCULAR HEMOGLOBIN 36.6 pg (27.0-33.0); MEAN CORPUSCULAR HGB CONC 34.6 g/dl (32.0-36.5); MONO % 13.8 % (0.0-5.0); NEUTROPHILS # 3.7 10^3/uL (1.8-7.7); NEUTROPHILS % 54.1 % (36.0-66.0); PLATELET COUNT, AUTOMATED 427 10^3/uL (150-450); RED BLOOD COUNT 3.36 10^6/uL (4.30-6.10); RED CELL DISTRIBUTION WIDTH 15.1 % (11.5-14.5); WHITE BLOOD COUNT 6.9 10^3/uL (4.0-10.0)
[2018-06-11 06:52] LABS: ALBUMIN 3.2 GM/DL (3.2-5.2); ALBUMIN/GLOBULIN RATIO 0.89 (1.00-1.93); ALKALINE PHOSPHATASE 45 U/L (45-117); ALT/SGPT 45 U/L (12-78); ANION GAP 8 MEQ/L (8-16); AST/SGOT 33 U/L (7-37); BILIRUBIN,TOTAL 0.2 MG/DL (0.2-1.0); BLOOD UREA NITROGEN 4 MG/DL (7-18); C REACTIVE PROTEIN QUANTITATIV 0.64 MG/DL (0.00-0.30); CALCIUM LEVEL 8.9 MG/DL (8.5-10.1); CARBON DIOXIDE LEVEL 30 MEQ/L (21-32); CHLORIDE LEVEL 102 MEQ/L (98-107); CREATININE FOR GFR 0.92 MG/DL (0.70-1.30); GLOMERULAR FILTRATION RATE > 60.0 (>60); GLUCOSE, FASTING 143 MG/DL (70-100); MAGNESIUM LEVEL 2.1 MG/DL (1.8-2.4); POTASSIUM SERUM 3.3 MEQ/L (3.5-5.1); SODIUM LEVEL 140 MEQ/L (136-145); TOTAL PROTEIN 6.8 GM/DL (6.4-8.2)
[2018-06-11] MEDS: MULTIVITAMINS/MINERALS THERAP 1 TAB PO (09:02)
[2018-06-11] MEDS: CREON-12 CAPSULE PO ×2 (09:02→12:33)
[2018-06-11] MEDS: FOLIC ACID 1 MG TAB PO (09:02)
[2018-06-11] MEDS: BISACODYL 5 MG TAB PO (09:02)
[2018-06-11] MEDS: CARVedilol 12.5 MG TAB PO (09:03)
[2018-06-11] MEDS: amLODIPine 10 MG TAB PO (09:03)
[2018-06-11] MEDS: POTASSIUM CHLORIDE 10 MEQ SR TABLET PO (09:03)
[2018-06-11] MEDS: LISINOPRIL 10 MG TAB PO (09:03)
[2018-06-11] MEDS: PANTOPRAZOLE 40MG TAB (PROTONIX) PO (09:03)
[2018-06-11] MEDS: ENOXAPARIN 40 MG/0.4 ML SYRINGE (J1650) SC (09:04)
[2018-06-11] MEDS: NICOTINE 7 MG/24 HR TRANSDERMAL TD (09:04)
[2018-06-11] MEDS: THIAMINE 100 MG TAB PO (09:04)
== END 2018-06-11 16:17 | disposition home or self-care (01) | DRG 282 ==
LOC: M MSPAV 06-07 03:46 → M ED 14:10 → M ED INP 17:10 → M ICU 18:31
DX: K85.20 Alcohol induced acute pancreatitis without necrosis or infection (principal); E83.42 Hypomagnesemia; I10 Essential (primary) hypertension; F17.210 Nicotine dependence, cigarettes, uncomplicated; F10.20 Alcohol dependence, uncomplicated; E87.6 Hypokalemia; F12.90 Cannabis use, unspecified, uncomplicated; F11.10 Opioid abuse, uncomplicated; Z79.899 Other long term (current) drug therapy

== ENCOUNTER 2018-08-26 17:26 | Emergency (ER) | payer SELFPAY ==
[~2018-08-26] VITALS: Ht 165.1 cm; Wt 104.5 kg
[~2018-08-26 17:26] MED LIST: ACET-683 PO; ARTI99.0 OU; CARV12.5 PO; LISI10TA4 PO; OXYC10TA12 PO; OXYC1TAB23 PO; PERCOCET PO; [UNRECOGNIZED DRUG - CODE] TOP
[2018-08-26 18:26] LABS: BASO % 0.4 % (0.0-1.0); EOS # 0.1 10^3/uL (0.0-0.50); EOS % 1.4 % (0.0-3.0); HEMOGLOBIN 15.2 g/dl (13.5-17.5); LYMPH # 2.8 10^3/uL (1.5-6.5); LYMPH % 35.1 % (24.0-44.0); MEAN CORPUSCULAR HEMOGLOBIN 36.5 pg (27.0-33.0); MEAN CORPUSCULAR HGB CONC 35.3 g/dl (32.0-36.5); MEAN CORPUSCULAR VOLUME 103.4 fl (80.0-96.0); MONO # 0.6 10^3/uL (0.0-0.8); NEUTROPHILS # 4.4 10^3/uL (1.8-7.7); NEUTROPHILS % 55.2 % (36.0-66.0); PLATELET COUNT, AUTOMATED 362 10^3/uL (150-450); RED BLOOD COUNT 4.16 10^6/uL (4.30-6.10)
[2018-08-26 18:59] LABS: ALT/SGPT 50 U/L (12-78); BILIRUBIN,DIRECT 0.1 MG/DL (0.0-0.2); BILIRUBIN,TOTAL 0.3 MG/DL (0.2-1.0); BLOOD UREA NITROGEN 6 MG/DL (7-18); CALCIUM LEVEL 9.2 MG/DL (8.5-10.1); CARBON DIOXIDE LEVEL 27 MEQ/L (21-32); CHLORIDE LEVEL 102 MEQ/L (98-107); CREATININE FOR GFR 0.99 MG/DL (0.70-1.30); GLOMERULAR FILTRATION RATE > 60.0 (>60); GLUCOSE, FASTING 136 MG/DL (70-100); LIPASE 94 U/L (73-393); POTASSIUM SERUM 3.8 MEQ/L (3.5-5.1); SODIUM LEVEL 139 MEQ/L (136-145); TOTAL PROTEIN 7.5 GM/DL (6.4-8.2)
[2018-08-26] MEDS ORDERED: NS 1,000 ML IV ONE (19:30)
[2018-08-26] MEDS ORDERED: KETOROLAC 30 MG/ML VIAL (J1885) IV ONE (19:30)
[2018-08-26] MEDS ORDERED: ONDANSETRON 4MG/2ML VIAL (J2405) IV ONE (19:30)
[2018-08-26 19:40] LABS: ACETONE/KETONE 1.66 MG/DL (<2.81); MAGNESIUM LEVEL 2.2 MG/DL (1.8-2.4); PHOSPHORUS LEVEL 2.8 MG/DL (2.5-4.9)
[2018-08-26 19:48] LABS: HEMOGLOBIN A1c 6.2 %
[2018-08-26] MEDS ORDERED: ISOVUE-370 76% 100ML VIAL (Q9967) As Ordered ONE (19:55)
[2018-08-26] MEDS ORDERED: MORPHINE 4 MG/ML 1ML VIAL/SYRINGE (J2270) IV ONE (21:15)
[2018-08-26 21:52] LABS: OSMOLALITY SERUM 334 MOSM/KG (275-295)
--- NOTE | 2018-08-26 21:59 | REPVR ---
EXAM: CT Abdomen and Pelvis With Contrast EXAM DATE/TIME: 08/26/2018 8:11 PM CLINICAL HISTORY: 28 years old, male; Pain; Abdominal pain; Additional info: Left abd pain TECHNIQUE: Axial computed tomography images of the abdomen and pelvis with intravenous contrast. All CT scans at this facility use at least one of these dose optimization techniques: automated exposure control; mA and/or kV adjustment per patient size (includes targeted exams where dose is matched to clinical indication); or iterative reconstruction. Coronal and sagittal reformatted images were created and reviewed. CONTRAST: 100 ml of ISOVUE 370 administered intravenously. COMPARISON: CT ABD/PEL W/IV CONTRAST ONLY 06/04/2018 4:23 PM FINDINGS: Lower thorax: No acute findings. ABDOMEN: Liver: There is a 1.4 cm enhancing lesion in the lateral segment of the left lobe of the liver. There is a 5 mm enhancing lesion noted in the lateral segment of the left lobe of the liver near the dome. There is a 2.8 cm area of low attenuation noted in the medial segment of the left lobe of the liver adjacent to the jovita hepatis. The liver measures 17 cm in craniocaudal span. The liver is low in density. Gallbladder and bile ducts: Normal. No calcified stones. No ductal dilation. Pancreas: Normal. No ductal dilation. Spleen: Normal. No splenomegaly. Adrenals: Normal. No mass. Kidneys and ureters: There is a 1.3 cm cyst projecting off the lower pole left kidney. Stomach and bowel: There are scattered colonic diverticula. There is a increased enhancement noted at the level of the distal rectum/rectoanal junction. This could be related to hemorrhoids. Direct inspection and clinical correlation might be considered Appendix: No evidence of appendicitis. PELVIS: Bladder: Unremarkable as visualized. Reproductive: Unremarkable as visualized. ABDOMEN and PELVIS: Intraperitoneal space: Normal. No free air. No significant fluid collection. Bones/joints: No acute fracture. No dislocation. Soft tissues: There is a midline abdominal hernia just above the umbilicus which contains a small knuckle of small bowel. There is an umbilical hernia containing fat. The hernia measures 1.1 cm at its base. Vasculature: Normal. No abdominal aortic aneurysm. Lymph nodes: Normal. No enlarged lymph nodes. IMPRESSION: 1. Supraumbilical midline abdominal hernia containing a small bowel loop. Minimal inflammatory changes within the surrounding fat could suggest early strangulation. No evidence of obstruction 2. 2 enhancing liver lesions unchanged from previous studies. The enhancement features are atypical for hemangioma. Adenoma might be considered. MR of the liver suggested for more definitive characterization. 3. Focal area of low attenuation within the medial segment of the left lobe of the liver near the jovita hepatis. Normal hepatic vessels are noted coursing through the lesion suggesting that this could be a an area of increased fat deposition. There is evidence of generalized hepatic steatosis. Again, MR would be helpful. 4. Left renal cyst. 5. Scattered colonic diverticula. 6. Generalized increased enhancement noted of the distal rectum/anus. This could be related to hemorrhoids. Direct inspection and clinical correlation suggested Electronically signed by: Flower Lorenzo On 08/26/2018 21:59:31 PM
[2018-08-26 22:32] VITALS: BP 129/88
--- NOTE | 2018-08-27 12:40 | ED PDOC ---
Post-Departure Follow-Up [facility] [address] [facility] fp and dr lees faxed formal report of ct abd/p for fu Yaritza Brambila MD Aug 27, 2018 12:40
== END 2018-08-26 22:33 | disposition home or self-care (01) ==
LOC: M ED 17:26
DX: K42.9 Umbilical hernia without obstruction or gangrene (principal); K76.9 Liver disease, unspecified; R11.10 Vomiting, unspecified; R19.7 Diarrhea, unspecified; E11.9 Type 2 diabetes mellitus without complications; I10 Essential (primary) hypertension; Z87.19 Personal history of other diseases of the digestive system; Z77.098 Contact with and (suspected) exposure to other hazardous, chiefly nonmedicinal, chemicals
CPT/HCPCS: 74177; 80048; 80076; 81001; 82010; 83036; 83690; 83735; 83930; 84100; 85025; 96374; 96375; 99284; G0480; J1885; J2270; J2405; Q9967

== ENCOUNTER 2018-09-17 09:29 | Emergency (ER) | payer SELFPAY ==
[~2018-09-17] VITALS: Ht 165.1 cm; Wt 106.4 kg
[2018-09-17] MEDS ORDERED: ONDANSETRON 4MG/2ML VIAL (J2405) IV ONE (10:00)
[2018-09-17] MEDS ORDERED: NS 1,000 ML IV ONE (10:00)
[2018-09-17 10:26] LABS: BASO % 0.2 % (0.0-1.0); EOS # 0.1 10^3/uL (0.0-0.50); HEMATOCRIT 43.5 % (42.0-52.0); HEMOGLOBIN 15.3 g/dl (13.5-17.5); LYMPH # 2.1 10^3/uL (1.5-6.5); LYMPH % 21.2 % (24.0-44.0); MEAN CORPUSCULAR HEMOGLOBIN 34.6 pg (27.0-33.0); MEAN CORPUSCULAR HGB CONC 35.2 g/dl (32.0-36.5); MEAN CORPUSCULAR VOLUME 98.4 fl (80.0-96.0); MONO # 0.8 10^3/uL (0.0-0.8); MONO % 8.3 % (0.0-5.0); NEUTROPHILS # 6.7 10^3/uL (1.8-7.7); NEUTROPHILS % 68.7 % (36.0-66.0); PLATELET COUNT, AUTOMATED 376 10^3/uL (150-450); RED BLOOD COUNT 4.42 10^6/uL (4.30-6.10); WHITE BLOOD COUNT 9.8 10^3/uL (4.0-10.0)
[2018-09-17] MEDS: MORPHINE 4 MG/ML 1ML VIAL/SYRINGE (J2270) IV PRN ×2 (10:30→11:00)
[2018-09-17 12:06] LABS: ALBUMIN 4.1 GM/DL (3.2-5.2); ALT/SGPT 59 U/L (12-78); BILIRUBIN,DIRECT < 0.1 MG/DL (0.0-0.2); BILIRUBIN,TOTAL 0.5 MG/DL (0.2-1.0); BLOOD UREA NITROGEN 10 MG/DL (7-18); CALCIUM LEVEL 9.8 MG/DL (8.5-10.1); CARBON DIOXIDE LEVEL 23 MEQ/L (21-32); CHLORIDE LEVEL 106 MEQ/L (98-107); CREATININE FOR GFR 0.83 MG/DL (0.70-1.30); GLOMERULAR FILTRATION RATE > 60.0 (>60); GLUCOSE, FASTING 127 MG/DL (70-100); LIPASE 89 U/L (73-393); POTASSIUM SERUM 4.5 MEQ/L (3.5-5.1); SODIUM LEVEL 138 MEQ/L (136-145); TOTAL PROTEIN 7.9 GM/DL (6.4-8.2)
[2018-09-17] MEDS ORDERED: ISOVUE-370 76% 100ML VIAL (Q9967) As Ordered ONE (12:16)
[2018-09-17] MEDS ORDERED: MORPHINE 4 MG/ML 1ML VIAL/SYRINGE (J2270) IV ONE (12:30)
--- NOTE | 2018-09-17 13:44 | REP ---
CT ABDOMEN AND PELVIS WITH IV CONTRAST: TECHNIQUE: Axial contrast enhanced images from the lung bases to the pubic symphysis using 100 mL Isovue 370 intravenous contrast material with multiplanar reformations. COMPARISON: 08/26/2018 as well as other prior exams. Visualized lungs bases demonstrate no infiltrate. The liver demonstrates an enhancing nodule in the left lobe which is stable compared to the initial exam 03/08/2018. A hypodense nodule more centrally near the jovita hepatis is also unchanged. The spleen, adrenals, and pancreas are unremarkable, aside from a 1 cm of the lower pole of the left kidney. There is no abdominal aortic aneurysm. There is no adenopathy. There is no free air or free fluid. There is no bowel wall thickening. There is no evidence of appendicitis. There is no pelvic mass. Small umbilical hernia contains fat. Just above the umbilicus in the midline there appears to be a small ventral hernia containing a small portion of a small bowel loop. There is no evidence for small bowel obstruction and no definite strangulation. There is no change since the prior study of 08/26/2018. IMPRESSION: No change since prior exam of 08/26/2018. Small umbilical hernia contains fat. Small supraumbilical hernia in the midline contains a small bowel loop which does not appear to be obstructed or strangulated. No free air or free fluid. No other acute finding. Electronically Signed by Renaldo Weir MD 09/18/2018 09:10 A
[2018-09-17] MEDS ORDERED: COLA100C5 PO (14:25)
[2018-09-17] MEDS ORDERED: MIRA3350 PO (14:25)
[2018-09-17] MEDS ORDERED: PERC5TAB12 PO (14:25)
[2018-09-17] MEDS ORDERED: PERCOCET 5MG/325MG TAB PO ONE (14:30)
[2018-09-17 14:44] VITALS: BP 154/86
== END 2018-09-17 14:45 | disposition home or self-care (01) ==
LOC: M ED 09:29
DX: K42.9 Umbilical hernia without obstruction or gangrene (principal); E11.9 Type 2 diabetes mellitus without complications; Z72.0 Tobacco use
CPT/HCPCS: 74177; 80048; 80076; 83605; 83690; 85025; 96374; 96375; 96376; 99284; J2270; J2405; Q9967

== ENCOUNTER 2018-09-23 09:20 | Day surgery (SDC) | payer SELFPAY ==
[~2018-09-23] VITALS: Ht 165.1 cm; Wt 104.5 kg
[~2018-09-23 09:20] MED LIST changes: +COLA100C5 PO; +LIDOCAINE 1% MDV 20ML VIAL SQ PRN; +LR 1,000 ML IV ONE; +MIRA3350 PO; +PERC5TAB12 PO
[2018-09-23] MEDS ORDERED: BUPIVACAINE/EPIN 0.25% 30 ML VIAL As Ordered ONE (12:11)
[2018-09-23] MEDS: fentaNYL 100 MCG/2 ML INJECTION (J3010) IV PRN ×4 (13:40→13:55)
[2018-09-23] MEDS ORDERED: ESMOLOL INJ 100MG/10ML VIAL As Ordered ONE (13:41)
[2018-09-23] MEDS ORDERED: ONDANSETRON 4MG/2ML VIAL (J2405) As Ordered ONE ×2 (13:41→14:50)
[2018-09-23] MEDS ORDERED: SUGAMMADEX SODIUM 500 MG/5 ML VIAL (BRIDION) As Ordered ONE (13:41)
[2018-09-23] MEDS ORDERED: dexameTHASONE 4 MG/ML 1ML VIAL (J1100) As Ordered ONE (13:41)
[2018-09-23] MEDS ORDERED: PROPOFOL 200 MG/20 ML VIAL As Ordered ONE (13:41)
[2018-09-23] MEDS ORDERED: ROCURONIUM BROMIDE 50 MG/5 ML VIAL As Ordered ONE (13:41)
[2018-09-23] MEDS ORDERED: fentaNYL 250 MCG/5 ML INJECTION (J3010) As Ordered ONE (13:41)
[2018-09-23] MEDS ORDERED: LIDOCAINE 2% INJ 100 MG/5 ML SDV (FOR ANES.) As Ordered ONE (13:41)
[2018-09-23] MEDS ORDERED: PHENYLephrine HCL 500 MCG/5 ML (100MCG/ML) SYRINGE (J2370) As Ordered ONE (13:41)
[2018-09-23] MEDS ORDERED: KETOROLAC 60 MG/2 ML VIAL (J1885) As Ordered ONE (13:41)
[2018-09-23] MEDS ORDERED: MIDAZOLAM INJ 2 MG/2 ML VIAL (J2250) As Ordered ONE (13:41)
[2018-09-23] MEDS ORDERED: ONDANSETRON 4MG/2ML VIAL (J2405) IV PRN (13:45)
[2018-09-23] MEDS ORDERED: NORCO, ANEXSIA 5/325MG TABLET (HYDROcodone/ACETAMINOPHEN) PO PRN (13:45)
[2018-09-23] MEDS ORDERED: LR 1,000 ML IV SCH (13:45)
[2018-09-23] MEDS: PERCOCET 5MG/325MG TAB PO PRN ×2 (13:50→14:20)
[2018-09-23] MEDS: HYDROMORPHONE HCL 0.5 MG/ 0.5 ML SYRINGE (J1170 PER 1) IV PRN ×4 (14:10→14:55)
[2018-09-23] MEDS ORDERED: METOCLOPRAMIDE INJ 10MG/2ML VIAL (J2765) As Ordered ONE (15:46)
[2018-09-23] MEDS ORDERED: METOCLOPRAMIDE INJ 10MG/2ML VIAL (J2765) IV SCH (16:15)
[2018-09-23 18:00] VITALS: BP 158/98
--- NOTE | 2018-09-24 14:43 | RO ---
DATE OF PROCEDURE: 09/23/2018 PREOPERATIVE DIAGNOSIS: Incarcerated ventral hernia. POSTOPERATIVE DIAGNOSIS: Incarcerated ventral hernia. PROCEDURE: Laparoscopic incarcerated ventral hernia repair. SURGEON: Dr. Renaldo Magana MILEAGE CLERK: Ana Maria Robles ANESTHESIA: General. ESTIMATED BLOOD LOSS (EBL): 5 mL. COMPLICATIONS: None. INDICATION FOR PROCEDURE: Patient is a 28-year-old male, presents with periumbilical pain for the past few weeks. He was diagnosed with an incarcerated ventral hernia in the emergency room and was sent to my office for evaluation. He has a palpable lump superior to the umbilicus in the midline that is very hard and tender, consistent with his hernia. Recommendation was to proceed with laparoscopic repair. Risks and benefits of procedure, not limited to, but including, bleeding, infection, hernia recurrence, hernia formation, damage to surrounding structures, need for further surgery, were discussed in detail with the patient. Informed consent was obtained and procedure planned. DESCRIPTION OF PROCEDURE: Patient brought back to operating room 7. After sufficient sedation, the abdomen was sterilely prepped and draped. Next, time-out done to confirm proper patient, proper procedure. Following that, a 5 mm incision was made in left upper quadrant. Veress needle was inserted and the abdomen was insufflated to 15 mmHg. Next, the Veress needle was removed, 5 mm Optiview port was used to gain access to the abdomen. Once the abdomen was entered, another 5 mm port was placed in the left lower quadrant. There is one tiny opening at the umbilicus, no other obvious hernias on exam. The falciform ligament was taken down distally from there, towards the umbilicus dissecting the preperitoneal fat out of the way, revealing an incarcerated ventral hernia and the small incarcerated umbilical hernia as well. Both were completely reduced using the Enseal. Once they were both completely freed up, both defect measured less than 5 mm in diameter each. They were only about a centimeter apart. They were both covered up with a 9 cm round Parietex mesh. Transfascial sutures were brought out through the abdominal wall, tied together, and the catheter and the Securestrap tacker was then used to place two rows of tacks around the perimeter of the mesh. Once this was completed, the abdomen was decompressed. Incisions were closed with #4-0 Vicryl subcuticular sutures. The abdomen was cleaned and dried. Steri-Strips, 4x4, and tape were applied, thus ending procedure.
== END 2018-09-23 18:10 | disposition home or self-care (01) ==
LOC: M SDC 09:20
PROVIDERS: ATTEND Surgery
DX: K43.6 Other and unspecified ventral hernia with obstruction, without gangrene (principal); I10 Essential (primary) hypertension
CPT/HCPCS: 49653; C1781; J0690; J1100; J1170; J1885; J2250; J2370; J2405; J2765; J3010

== ENCOUNTER 2018-12-02 01:23 | Inpatient (IN) | payer SELFPAY ==
[~2018-12-02] VITALS: Ht 165.1 cm; Wt 106.7 kg
[~2018-12-02 01:23] MED LIST changes: -LIDOCAINE 1% MDV 20ML VIAL SQ PRN; -LR 1,000 ML IV ONE
[2018-12-02 02:17] LABS: BASO % 0.2 % (0.0-1.0); EOS # 0.1 10^3/uL (0.0-0.50); EOS % 0.6 % (0.0-3.0); HEMATOCRIT 38.8 % (42.0-52.0); HEMOGLOBIN 14.1 g/dl (13.5-17.5); LYMPH # 1.6 10^3/uL (1.5-6.5); LYMPH % 16.5 % (24.0-44.0); MEAN CORPUSCULAR HEMOGLOBIN 35.8 pg (27.0-33.0); MEAN CORPUSCULAR HGB CONC 36.3 g/dl (32.0-36.5); MEAN CORPUSCULAR VOLUME 98.5 fl (80.0-96.0); MONO # 0.8 10^3/uL (0.0-0.8); MONO % 7.7 % (0.0-5.0); NEUTROPHILS # 7.4 10^3/uL (1.8-7.7); NEUTROPHILS % 74.7 % (36.0-66.0); PLATELET COUNT, AUTOMATED 285 10^3/uL (150-450); RED BLOOD COUNT 3.94 10^6/uL (4.30-6.10); WHITE BLOOD COUNT 9.9 10^3/uL (4.0-10.0)
[2018-12-02 02:36] LABS: ALBUMIN 4.4 GM/DL (3.2-5.2); ALT/SGPT 36 U/L (12-78); BILIRUBIN,DIRECT 0.3 MG/DL (0.0-0.2); BILIRUBIN,TOTAL 0.8 MG/DL (0.2-1.0); BLOOD UREA NITROGEN 6 MG/DL (7-18); CALCIUM LEVEL 8.9 MG/DL (8.5-10.1); CARBON DIOXIDE LEVEL 25 MEQ/L (21-32); CHLORIDE LEVEL 101 MEQ/L (98-107); CREATININE FOR GFR 0.93 MG/DL (0.70-1.30); GLOMERULAR FILTRATION RATE > 60.0 (>60); GLUCOSE, FASTING 165 MG/DL (70-100); LIPASE 742 U/L (73-393); POTASSIUM SERUM 3.1 MEQ/L (3.5-5.1); SODIUM LEVEL 138 MEQ/L (136-145); TOTAL PROTEIN 7.1 GM/DL (6.4-8.2)
[2018-12-02] MEDS ORDERED: ONDANSETRON 4MG/2ML VIAL (J2405) IV ONE (04:30)
[2018-12-02] MEDS ORDERED: ISOVUE-370 76% 100ML VIAL (Q9967) As Ordered ONE (04:34)
[2018-12-02] MEDS: MORPHINE 4 MG/ML 1ML VIAL/SYRINGE (J2270) IV PRN ×8 (04:38→23:11)
[2018-12-02] MEDS ORDERED: NS 1,000 ML IV ONE ×2 (04:45→06:30)
[2018-12-02 05:12] LABS: ETHYL ALCOHOL (ETHANOL) 0.078 % (0.000-0.010)
--- NOTE | 2018-12-02 05:53 | REPVR ---
EXAM: CT Abdomen and Pelvis With Contrast EXAM DATE/TIME: 12/02/2018 4:49 AM CLINICAL HISTORY: 28 years old, male; Pain and signs and symptoms and abnormal findings; Abnormal lab test; Elevated lipase; Nausea and vomiting; Abdominal pain; Epigastric; Additional info: Epigastric pain, elevated lipase, n/v TECHNIQUE: Imaging protocol: Axial computed tomography images of the abdomen and pelvis with intravenous contrast. Coronal and sagittal reformatted images were created and reviewed. Radiation optimization: All CT scans at this facility use at least one of these dose optimization techniques: automated exposure control; mA and/or kV adjustment per patient size (includes targeted exams where dose is matched to clinical indication); or iterative reconstruction. Contrast material: ISOVUE 370; Contrast volume: 100 ml; Contrast route: IV; COMPARISON: CT ABD/PEL W/IV CONTRAST ONLY 09/17/2018 12:06 PM FINDINGS: ABDOMEN: Liver: The liver is severely hypoattenuated. There is 1.4 cm left hepatic lobe dense versus enhancing lesion (axial image 20). There is a 3.4 x 2.4 cm medial right hepatic lobe more pronounced focal hypodensity (coronal image 15 and axial image 33). Gallbladder and bile ducts: Normal. No calcified stones. No ductal dilation. Pancreas: There is significant stranding and edema surrounding the pancreatic head and uncinate process. The pancreatic duct is not dilated. Spleen: Normal. No splenomegaly. Adrenals: Normal. No mass. Kidneys and ureters: There is a 1.2 cm left lower renal pole nodule measuring higher than simple fluid. Stomach and bowel: There is colonic mural infiltration with fat. Appendix: No evidence of appendicitis. PELVIS: Bladder: Unremarkable as visualized. Reproductive: Unremarkable as visualized. ABDOMEN and PELVIS: Intraperitoneal space: Normal. No free air. No significant fluid collection. Bones/joints: No acute fracture. No dislocation. Soft tissues: There is a small bilateral fat-containing inguinal hernias. Vasculature: Normal. No abdominal aortic aneurysm. Lymph nodes: There is shotty peripancreatic lymph nodes. IMPRESSION: 1. Acute pancreatitis with no CT evidence of tissue necrosis or fluid collection to suggest pseudocyst. No venous thrombosis or pseudoaneurysm seen. No pancreatic ductal dilatation seen. 2. Severe fatty infiltration of the liver. 3. 1.4 cm dense left hepatic lobe ves enhancing nodule. This is unchanged since the prior exam. This could represent flash filling hemangioma, focal fatty sparing among other etiologies. If indicated further characterization with MRI with contrast may be obtained. 4. 3.4 x 2.4 cm medial right hepatic lobe cyst versus focal area of more pronounced focal fatty infiltration. 5. 1.2 cm left lower renal pole nodule measuring higher than simple fluid density. Further characterization with ultrasound or MRI is suggested. This is grossly unchanged since the prior exam. 6. Small bilateral fat-containing inguinal hernias. 7. Colonic mural infiltration of fat is nonspecific and could be seen with chronic inflammatory process such as IBD. Correlate with clinical history. Electronically signed by: Franklin Mcintyre On 12/02/2018 05:52:43 AM
[2018-12-02] MEDS ORDERED: APAP325T4 PO (06:49)
[2018-12-02] MEDS ORDERED: MAALOX 30 ML SUSP *UDC PO PRN (07:00)
[2018-12-02] MEDS: KCL 40MEQ in NS 1000ML 1,000 ML IV SCH ×4 (07:17→23:13)
--- NOTE | 2018-12-02 07:20 | HPEPDOC ---
General Date of Admission Chief Complaint The patient is a 28-year-old male admitted with a reason for visit of Abd Pain. Source: Patient, RN/MD, Old records History of Present Illness Mr. Gutierres is a 28 years old man with hx/o Alcoholic Pancreatitis, who presents to ER with c/o LUQ abdominal pain, nausea, vomiting. It is unfortunate that pt continues to drink. Counseling provided. Currently he has no w/d signs. Pt reports last drink being yesterday morning. In the ER, Lipase is elevated at >700. CT shows acute uncomplicated pancreatitis. CBD is normal. LFTs are fine. HR and BP are elevated- likely due to pain. Pt is afebrile. Home Medications Scheduled PRN Acetaminophen (Acetaminophen) 325 Mg Tablet, 650 MG PO Q4-6H PRN for PAIN, (Reported) Allergies Coded Allergies: No Known Allergies (Unverified , 03/07/18) Past Medical History Medical History 1. Pancreatitis secondary to alcohol use 2. Hypertension Surgical History 1. History of left foot surgeries 2. Tonsillectomy 3. Left ear tumor removal Family History Significant Family History: Cancer, Hypertension Social History * Smoker: current smoker Alcohol: heavy Drugs: denies A-FIB/CHADSVASC A-FIB History Current/History of A-Fib/PAF?: No Review of Systems Constitutional: Denies: Chills, Fever Eyes: Denies: Pain ENT: Denies: Head Aches Skin: Denies: Rash, Lesions Pulmonary: Denies: Dyspnea, Cough Cardiovascular: Denies: Chest Pain, Palpitations, Edema Gastrointestinal: Reports: Nausea, Vomiting, Abdominal Pain; Denies: Diarrhea, Constipation Genitourinary: Denies: Dysuria Musculoskeletal: Denies: Neck Pain Neurological: Reports: Weakness; Denies: Numbness Psych: Reports: Mood Normal, Anxiety Physical Examination General Exam: Positive: Alert, Cooperative, No Acute Distress Eye Exam: Positive: PERRLA ENT Exam: Positive: Atraumatic Neck Exam: Positive: Supple; Negative: JVD Chest Exam: Positive: Clear to auscultation, Normal air movement Heart Exam: Positive: Rate Normal, Tachycardic, Regular Rhythm Abdomen Exam: Positive: Normal bowel sounds, Soft, Tenderness Extremity Exam: Positive: Normal pulses; Negative: Edema Skin Exam: Positive: Nl turgor and temperature; Negative: Rash Neuro Exam: Positive: Normal Gait, Normal Speech, Strength at 5/5 X4 ext Psych Exam: Positive: Mental status NL, Anxiety Vital Signs Vital Signs Date Time Temp Pulse Resp B/P (MAP) Pulse Ox O2 Delivery O2 Flow Rate FiO2 12/02/18 05:53 18 99 12/02/18 03:54 12/02/18 03:53 99.7 124 12/02/18 01:23 Room Air Laboratory Data Labs 24H Laboratory Tests 2 12/02/18 01:56: Lactic Acid Level 2.4*H 12/02/18 01:57: Immature Granulocyte % (Auto) 0.3, White Blood Count 9.9, Red Blood Count 3.94L, Hemoglobin 14.1, Hematocrit 38.8L, Mean Corpuscular Volume 98.5H, Mean Corpuscular Hemoglobin 35.8H, Mean Corpuscular Hemoglobin Concent 36.3, Red Cell Distribution Width 18.8H, Platelet Count 285, Neutrophils (%) (Auto) 74.7H, Lymphocytes (%) (Auto) 16.5L, Monocytes (%) (Auto) 7.7H, Eosinophils (%) (Auto) 0.6, Basophils (%) (Auto) 0.2, Neutrophils # (Auto) 7.4, Lymphocytes # (Auto) 1.6, Monocytes # (Auto) 0.8, Eosinophils # (Auto) 0.1, Basophils # (Auto) 0.0, Nucleated Red Blood Cells % (auto) 0.0, Urine Color TONI, Urine Appearance HAZY, Urine pH 5.0, Urine Specific [place] 1.033, Urine Protein 2+H, Urine Glucose (UA) 1+H, Urine Ketones TRACEH, Urine Blood NEGATIVE, Urine Nitrite NEGATIVE, Urine Bilirubin 1+H, Urine Urobilinogen 2.0H, Urine Leukocyte Esterase NEGATIVE, Urine WBC (Auto) 2, Urine RBC (Auto) 6H, Urine Hyaline Casts (Auto) 0, Urine Bacteria (Auto) NEGATIVE, Urine Squamous Epithelial Cells 0, Urine Mucus (Auto) SMALL, Urine Sperm (Auto) , Anion Gap 12, Glomerular Filtration Rate > 60.0, Calcium Level 8.9, Aspartate Amino Transf (AST/SGOT) 81H, Alanine Aminotransferase (ALT/SGPT) 36, Alkaline Phosphatase 75, Total Bilirubin 0.8, Direct Bilirubin 0.3H, Total Protein 7.1, Albumin 4.4, Albumin/Globulin Ratio 1.63, Lipase 742H, Ethyl Alcohol Level 0.078H CBC/BMP Laboratory Tests 12/02/18 01:57 Red Blood Count 3.94 L, Mean Corpuscular Volume 98.5 H, Mean Corpuscular Hemoglobin 35.8 H, Mean Corpuscular Hemoglobin Concent 36.3, Red Cell Distribution Width 18.8 H, Neutrophils (%) (Auto) 74.7 H, Lymphocytes (%) (Auto) 16.5 L, Monocytes (%) (Auto) 7.7 H, Eosinophils (%) (Auto) 0.6, Basophils (%) (Auto) 0.2, Neutrophils # (Auto) 7.4, Lymphocytes # (Auto) 1.6, Monocytes # (Auto) 0.8, Eosinophils # (Auto) 0.1, Basophils # (Auto) 0.0 Microbiology Microbiology 12/02/18 Blood Culture, Received Pending Assessment/Plan Acute Alcoholic Pancreatitis, Uncomplicated - Admit to PCU - NPO, IV Fluid, pain meds, Zofran prn - Monitor and supplement electrolytes - CIWA, Thiamine, Folate, MVI Plan / VTE VTE Prophylaxis Ordered?: Yes Plan Anticipated Discharge: Home PREM MARRUFO MD December 02, 2018 07:20
[2018-12-02 09:22] VITALS: BP 138/89
[2018-12-02] MEDS: ENOXAPARIN 40 MG/0.4 ML SYRINGE (J1650) SC SCH (09:22)
[2018-12-02] MEDS: THIAMINE 100 MG TAB PO SCH ×2 (09:23→20:08)
[2018-12-02] MEDS: FOLIC ACID 1 MG TAB PO SCH (09:23)
[2018-12-02] MEDS: MULTIVITAMINS/MINERALS THERAP 1 TAB PO SCH (09:23)
[2018-12-02] MEDS: ONDANSETRON 4MG/2ML VIAL (J2405) IV PRN ×3 (10:29→20:07)
[2018-12-02 11:51] VITALS: BP 156/98
[2018-12-02 12:32] VITALS: BP 156/98
[2018-12-02] MEDS: MOM 30ML SUSPENSION UDC PO PRN (13:30)
[2018-12-02 15:55] VITALS: BP 148/96
[2018-12-02 16:29] VITALS: BP 148/99
[2018-12-02 20:00] VITALS: BP 150/90
[2018-12-03] VITALS (10 sets, daily range): BP systolic 146–186; BP diastolic 78–116
[2018-12-03] MEDS: ONDANSETRON 4MG/2ML VIAL (J2405) IV PRN ×2 (00:05→04:42)
[2018-12-03] MEDS: MORPHINE 4 MG/ML 1ML VIAL/SYRINGE (J2270) IV PRN ×2 (01:35→04:42)
[2018-12-03 06:07] LABS: BASO % 0.1 % (0.0-1.0); EOS # 0.3 10^3/uL (0.0-0.50); EOS % 1.8 % (0.0-3.0); HEMATOCRIT 34.1 % (42.0-52.0); LYMPH # 1.7 10^3/uL (1.5-6.5); MEAN CORPUSCULAR HEMOGLOBIN 35.2 pg (27.0-33.0); MEAN CORPUSCULAR HGB CONC 34.9 g/dl (32.0-36.5); MEAN CORPUSCULAR VOLUME 100.9 fl (80.0-96.0); MONO # 0.9 10^3/uL (0.0-0.8); MONO % 6.7 % (0.0-5.0); NEUTROPHILS # 10.8 10^3/uL (1.8-7.7); NEUTROPHILS % 78.6 % (36.0-66.0); PLATELET COUNT, AUTOMATED 238 10^3/uL (150-450); RED BLOOD COUNT 3.38 10^6/uL (4.30-6.10); WHITE BLOOD COUNT 13.8 10^3/uL (4.0-10.0)
[2018-12-03] MEDS: KCL 40MEQ in NS 1000ML 1,000 ML IV SCH (06:08)
[2018-12-03 06:14] LABS: HEMOGLOBIN 11.9 g/dl (13.5-17.5)
[2018-12-03] MEDS: LORazepam 2 MG TAB PO PRN ×4 (06:45→23:40)
[2018-12-03 06:52] LABS: ALBUMIN 3.5 GM/DL (3.2-5.2); ALT/SGPT 27 U/L (12-78); BILIRUBIN,TOTAL 0.9 MG/DL (0.2-1.0); BLOOD UREA NITROGEN 3 MG/DL (7-18); CALCIUM LEVEL 8.3 MG/DL (8.5-10.1); CARBON DIOXIDE LEVEL 26 MEQ/L (21-32); CHLORIDE LEVEL 105 MEQ/L (98-107); GLOMERULAR FILTRATION RATE > 60.0 (>60); GLUCOSE, FASTING 85 MG/DL (70-100); LIPASE 407 U/L (73-393); MAGNESIUM LEVEL 1.7 MG/DL (1.8-2.4); POTASSIUM SERUM 3.8 MEQ/L (3.5-5.1); SODIUM LEVEL 139 MEQ/L (136-145); TOTAL PROTEIN 6.8 GM/DL (6.4-8.2)
[2018-12-03] MEDS ORDERED: HYDROMORPHONE HCL 0.5 MG/ 0.5 ML SYRINGE (J1170 PER 1) IV PRN (08:00)
[2018-12-03] MEDS: KETOROLAC 30 MG/ML VIAL (J1885) IV PRN ×3 (08:32→19:38)
[2018-12-03] MEDS: THIAMINE 100 MG TAB PO SCH ×2 (08:32→19:38)
[2018-12-03] MEDS: FOLIC ACID 1 MG TAB PO SCH (08:32)
[2018-12-03] MEDS: MULTIVITAMINS/MINERALS THERAP 1 TAB PO SCH (08:32)
[2018-12-03] MEDS: ENOXAPARIN 40 MG/0.4 ML SYRINGE (J1650) SC SCH (08:33)
[2018-12-03] MEDS: HYDROMORPHONE HCL 0.5 MG/ 0.5 ML SYRINGE (J1170 PER 1) IV PRN ×3 (08:33→15:40)
--- NOTE | 2018-12-03 11:10 | IPNPDOC ---
Date Seen The patient was seen on 12/03/18. Progress Note Progress Note Objective 28 Y M, history of HTN, and recurrent ETOH pancreatitis admitted for abdominal pain and pancreatitis still has severe pain even with IV morphine Physical Examination General Exam: AA Ox3, in acute pain distress Eye Exam: Positive: PERRLA ENT Exam: Positive: Atraumatic Neck Exam: Positive: Supple; Negative: JVD Chest Exam: Positive: Clear to auscultation, Normal air movement Heart Exam: Positive: Rate Normal, Regular Rhythm Abdomen Exam: Positive: Normal bowel sounds, Soft; mild distention and diffuse tenderness and no rebound Extremity Exam: Positive: Normal pulses; Negative: Edema Skin Exam: Positive: Nl turgor and temperature, no rash Neuro Exam: non focal Psych Exam: no acute psychosis Review of systems no fever no chills no chest pain Severe abdominal pain no diarrhea no vomiting Assessment and Plan 1. ETOH pancreatitis: recurrent; CT did not show necrosis or pancreatic pseudocysts he is afebrile, does not need abx; he still IV pain medicine control, switch to IV delaudid and Toradol will continue IVF 2. HTN, his BP is high, likely due to pain stress and will monitor 3. ETOH abuse, advised to quit 4. He is on DVT prophylaxis A-FIB/CHADSVASC A-FIB History Current/History of A-Fib/PAF?: No Current Oral Anticoagulant The: No VS, I&O, 24H, Fishbone Vital Signs/I&O Vital Signs Date Time Temp Pulse Resp B/P (MAP) Pulse Ox O2 Delivery O2 Flow Rate FiO2 12/03/18 08:43 16 12/03/18 08:00 98.9 99 156/116 (129) 100 12/02/18 08:53 Room Air I&O- Last 24 Hours up to 6 AM 12/03/18 05:59 Intake Total 4100 ml Output Total 1300 ml Balance 2800 ml Laboratory Data 24H LABS Laboratory Tests 2 12/03/18 05:33: Immature Granulocyte % (Auto) 0.8, White Blood Count 13.8H, Red Blood Count 3.38L, Hemoglobin 11.9#L, Hematocrit 34.1L, Mean Corpuscular Volume 100.9H, Mean Corpuscular Hemoglobin 35.2H, Mean Corpuscular Hemoglobin Concent 34.9, Red Cell Distribution Width 19.1H, Platelet Count 238, Neutrophils (%) (Auto) 78.6H, Lymphocytes (%) (Auto) 12.0L, Monocytes (%) (Auto) 6.7H, Eosinophils (%) (Auto) 1.8, Basophils (%) (Auto) 0.1, Neutrophils # (Auto) 10.8H, Lymphocytes # (Auto) 1.7, Monocytes # (Auto) 0.9H, Eosinophils # (Auto) 0.3, Basophils # (Auto) 0.0, Nucleated Red Blood Cells % (auto) 0.0, Anion Gap 8, Glomerular Filtration Rate > 60.0, Blood Urea Nitrogen 3L, Creatinine 0.70, Sodium Level 139, Potassium Level 3.8#, Chloride Level 105, Carbon Dioxide Level 26, Calcium Level 8.3L, Aspartate Amino Transf (AST/SGOT) 38H, Alanine Aminotransferase (ALT/SGPT) 27, Alkaline Phosphatase 60, Total Bilirubin 0.9, Total Protein 6.8, Albumin 3.5#, Magnesium Level 1.7L, Albumin/Globulin Ratio 1.06, Lipase 407H CBC/BMP Laboratory Tests 12/03/18 05:33 Red Blood Count 3.38 L, Mean Corpuscular Volume 100.9 H, Mean Corpuscular Hemog lobin 35.2 H, Mean Corpuscular Hemoglobin Concent 34.9, Red Cell Distribution Width 19.1 H, Neutrophils (%) (Auto) 78.6 H, Lymphocytes (%) (Auto) 12.0 L, Monocytes (%) (Auto) 6.7 H, Eosinophils (%) (Auto) 1.8, Basophils (%) (Auto) 0.1, Neutrophils # (Auto) 10.8 H, Lymphocytes # (Auto) 1.7, Monocytes # (Auto) 0.9 H, Eosinophils # (Auto) 0.3, Basophils # (Auto) 0.0, Calcium Level 8.3 L, Aspartate Amino Transf (AST/SGOT) 38 H, Alanine Aminotransferase (ALT/SGPT) 27, Alkaline Phosphatase 60, Total Bilirubin 0.9, Total Protein 6.8, Albumin 3.5 # Microbiology Microbiology 12/02/18 Blood Culture - Preliminary, Resulted No growth after 24 hours . All specim... BIJU ENGLAND MD December 03, 2018 11:10
[2018-12-03] MEDS ORDERED: MAG SULF 1GM/100ML (MAG RUN) 1 GM in APPROPRIATE DILUENT 1 EA IV ONE (11:15)
[2018-12-03] MEDS: LISINOPRIL 10 MG TAB PO SCH (12:20)
[2018-12-03] MEDS: amLODIPine 10 MG TAB PO SCH (17:03)
[2018-12-03] MEDS: HYDROmorphone (DILAUDID) 4 MG TAB PO PRN ×2 (18:18→21:50)
[2018-12-04] VITALS (10 sets, daily range): BP systolic 148–182; BP diastolic 65–118
[2018-12-04] MEDS: HYDROmorphone (DILAUDID) 4 MG TAB PO PRN ×6 (03:45→22:47)
[2018-12-04] MEDS ORDERED: ONDANSETRON 4 MG TAB (S0181) PO ONE (04:45)
[2018-12-04 06:23] LABS: HEMATOCRIT 38.1 % (42.0-52.0); HEMOGLOBIN 13.3 g/dl (13.5-17.5); MEAN CORPUSCULAR HEMOGLOBIN 35.3 pg (27.0-33.0); MEAN CORPUSCULAR HGB CONC 34.9 g/dl (32.0-36.5); MEAN CORPUSCULAR VOLUME 101.1 fl (80.0-96.0); PLATELET COUNT, AUTOMATED 250 10^3/uL (150-450); RED BLOOD COUNT 3.77 10^6/uL (4.30-6.10); WHITE BLOOD COUNT 13.1 10^3/uL (4.0-10.0)
[2018-12-04 06:40] LABS: BLOOD UREA NITROGEN 2 MG/DL (7-18); CALCIUM LEVEL 8.8 MG/DL (8.5-10.1); CARBON DIOXIDE LEVEL 28 MEQ/L (21-32); CHLORIDE LEVEL 102 MEQ/L (98-107); CREATININE FOR GFR 0.67 MG/DL (0.70-1.30); GLOMERULAR FILTRATION RATE > 60.0 (>60); GLUCOSE, FASTING 124 MG/DL (70-100); POTASSIUM SERUM 3.5 MEQ/L (3.5-5.1); SODIUM LEVEL 138 MEQ/L (136-145)
[2018-12-04] MEDS: KETOROLAC 30 MG/ML VIAL (J1885) IV PRN (07:39)
[2018-12-04] MEDS: THIAMINE 100 MG TAB PO SCH ×2 (08:50→20:51)
[2018-12-04] MEDS: MULTIVITAMINS/MINERALS THERAP 1 TAB PO SCH (08:50)
[2018-12-04] MEDS: ENOXAPARIN 40 MG/0.4 ML SYRINGE (J1650) SC SCH (08:50)
[2018-12-04] MEDS: LISINOPRIL 10 MG TAB PO SCH (08:50)
--- NOTE | 2018-12-04 08:50 | IPNPDOC ---
Date Seen The patient was seen on 12/04/18. Progress Note Objective 28 Y M, history of HTN, and recurrent ETOH pancreatitis admitted for abdominal pain and pancreatitis pain control better he ambulates well and tolerates clear liquid diet Physical Examination General Exam: AA Ox3, comfortable Eye Exam: Positive: PERRLA ENT Exam: Positive: Atraumatic Neck Exam: Positive: Supple; Negative: JVD Chest Exam: Positive: Clear to auscultation, Normal air movement Heart Exam: Positive: Rate Normal, Regular Rhythm Abdomen Exam: Positive: Normal bowel sounds, Soft; mild distention and mild tenderness and no rebound Extremity Exam: Positive: Normal pulses; Negative: Edema Skin Exam: Positive: Nl turgor and temperature, no rash Neuro Exam: non focal Psych Exam: no acute psychosis Review of systems moderate abdominal pain no fever no chills no chest pain no diarrhea no vomiting Assessment and Plan 1. ETOH pancreatitis: recurrent; CT did not show necrosis or pancreatic pseudocysts his abdominal pain is controlled via oral dilaudid 2. HTN, BP is high, will continue lisinopril and amlodipine was added 3. ETOH abuse, advised to quit 4. He is on DVT prophylaxis 5. Dispo: will transfer him to floor and will advance his diet as tolerated, plans to discharge home tomorrow A-FIB/CHADSVASC A-FIB History Current/History of A-Fib/PAF?: No Current Oral Anticoagulant The: No VS, I&O, 24H, Fishbone Vital Signs/I&O Vital Signs Date Time Temp Pulse Resp B/P (MAP) Pulse Ox O2 Delivery O2 Flow Rate FiO2 12/04/18 08:00 98.1 111 20 176/118 (137) 98 12/02/18 08:53 Room Air I&O- Last 24 Hours up to 6 AM 12/04/18 06:00 Intake Total 3670 ml Output Total 1925 ml Balance 1745 ml Laboratory Data 24H LABS Laboratory Tests 2 12/04/18 05:33: Nucleated Red Blood Cells % (auto) 0.2H, Anion Gap 8, Glomerular Filtration Rate > 60.0, Blood Urea Nitrogen 2L, Creatinine 0.67L, Sodium Level 138, Potassium Level 3.5, Chloride Level 102, Carbon Dioxide Level 28, Calcium Level 8.8 CBC/BMP Laboratory Tests 12/04/18 05:33 Red Blood Count 3.77 L, Mean Corpuscular Volume 101.1 H, Mean Corpuscular Hemoglobin 35.3 H, Mean Corpuscular Hemoglobin Concent 34.9, Red Cell Distribution Width 18.9 H, Calcium Level 8.8 Microbiology Microbiology 12/02/18 Blood Culture - Preliminary, Resulted No Growth after 48 hours. All Specime... BIJU ENGLAND MD December 04, 2018 08:50
[2018-12-04] MEDS: amLODIPine 10 MG TAB PO SCH (08:51)
[2018-12-04] MEDS: FOLIC ACID 1 MG TAB PO SCH (08:51)
[2018-12-04] MEDS: ACETAMINOPHEN TAB 650MG DOSE (2X325MG) PO PRN ×2 (10:59→20:58)
[2018-12-04] MEDS: MOM 30ML SUSPENSION UDC PO PRN (12:30)
[2018-12-04] MEDS ORDERED: ONDANSETRON 4MG/2ML VIAL (J2405) IV PRN (14:45)
[2018-12-04] MEDS: ONDANSETRON 4 MG TAB (S0181) PO PRN (20:51)
[2018-12-05 02:00] VITALS: BP 159/72
[2018-12-05] MEDS: HYDROmorphone (DILAUDID) 4 MG TAB PO PRN ×5 (02:08→16:41)
[2018-12-05 06:00] VITALS: BP 172/80
[2018-12-05] MEDS: ONDANSETRON 4 MG TAB (S0181) PO PRN (08:03)
[2018-12-05] MEDS: MULTIVITAMINS/MINERALS THERAP 1 TAB PO SCH (09:39)
[2018-12-05] MEDS: LISINOPRIL 10 MG TAB PO SCH (09:40)
[2018-12-05] MEDS: FOLIC ACID 1 MG TAB PO SCH (09:40)
[2018-12-05 09:41] VITALS: BP_SYST 160; BP_DIAS 92; BP_DIAS 98
[2018-12-05] MEDS: ENOXAPARIN 40 MG/0.4 ML SYRINGE (J1650) SC SCH (09:41)
[2018-12-05] MEDS: amLODIPine 10 MG TAB PO SCH (09:41)
[2018-12-05 10:00] VITALS: BP 160/62
[2018-12-05] MEDS: ACETAMINOPHEN TAB 650MG DOSE (2X325MG) PO PRN (12:27)
[2018-12-05 14:00] VITALS: BP 140/66
--- NOTE | 2018-12-05 14:01 | IPNPDOC ---
Date Seen The patient was seen on 12/05/18. Progress Note Objective 28 Y M, history of HTN, and recurrent ETOH pancreatitis admitted for abdominal pain and pancreatitis pain control better but still request frequent oral pain medicines he ambulates well and tolerates full liquid diet Physical Examination General Exam: AA Ox3, comfortable Eye Exam: Positive: PERRLA ENT Exam: Positive: Atraumatic Neck Exam: Positive: Supple; Negative: JVD Chest Exam: Positive: Clear to auscultation, Normal air movement Heart Exam: Positive: Rate Normal, Regular Rhythm Abdomen Exam: Positive: Normal bowel sounds, Soft; mild distention and mild tenderness and no rebound Extremity Exam: Positive: Normal pulses; Negative: Edema Skin Exam: Positive: Nl turgor and temperature, no rash Neuro Exam: non focal Psych Exam: no acute psychosis Review of systems moderate abdominal pain no fever no chills no chest pain no diarrhea no vomiting Assessment and Plan 1. ETOH pancreatitis: recurrent; CT did not show necrosis or pancreatic pseud ocysts his abdominal pain is controlled via oral dilaudid 2. HTN, BP better on lisinopril and amlodipine 3. ETOH abuse, advised to quit 4. He is on DVT prophylaxis 5. Dispo: plans to discharge home tomorrow A-FIB/CHADSVASC A-FIB History Current/History of A-Fib/PAF?: Yes Current PO Anticoag Therapy: Yes VS, I&O, 24H, Fishbone Vital Signs/I&O Vital Signs Date Time Temp Pulse Resp B/P (MAP) Pulse Ox O2 Delivery O2 Flow Rate FiO2 12/05/18 13:29 18 12/05/18 10:00 97.2 107 160/62 (94) 97 12/02/18 08:53 Room Air I&O- Last 24 Hours up to 6 AM 12/05/18 05:59 Intake Total 2260 ml Output Total 1305 ml Balance 955 ml Laboratory Data Microbiology Microbiology 12/02/18 Blood Culture - Preliminary, Resulted No Growth after 72 hours. All specime... BIJU ENGLAND MD December 05, 2018 14:01
[2018-12-05] MEDS ORDERED: AMLO10TA5 PO (17:05)
[2018-12-05] MEDS ORDERED: DILA4TAB13 PO ×2 (17:05→17:12)
[2018-12-05] MEDS ORDERED: LISI10TA4 PO (17:05)
--- NOTE | 2018-12-06 07:21 | DS.PDOC ---
Discharge Summary General Date of Admission December 02, 2018 at 06:58 Date of Discharge December 05, 2018 Attending Physician: BIJU ENGLAND MD Discharge Summary PROCEDURES PERFORMED DURING STAY: none ADMITTING DIAGNOSES: 1. ETOH pancreatitis 2. HTN DISCHARGE DIAGNOSES: 1. ETOH pancreatitis 2. HTN COMPLICATIONS/CHIEF COMPLAINT: Acute Alcoholic Pancreatitis. HISTORY OF PRESENT ILLNESS: Mr. Gutierres is a 28 years old man with hx/o Alcoholic Pancreatitis, who presents to ER with c/o LUQ abdominal pain, nausea, vomiting. It is unfortunate that pt continues to drink. Counseling provided. Currently he has no w/d signs. Pt reports last drink being yesterday morning. In the ER, Lipase is elevated at >700. CT shows acute uncomplicated pancreatitis. CBD is normal. LFTs are fine. HOSPITAL COURSE: after admission, he was treated supportively including bowel rest, IVF and pain control. Meanwhile he was educated regarding quit drinking. He also has HTN and lisinopril and amlodipine were given. On discharge he is medically stable. DISCHARGE MEDICATIONS: Please see below. ALLERGIES: Please see below. PHYSICAL EXAMINATION ON DISCHARGE: VITAL SIGNS: Please see below. GENERAL:AA Ox3 HEENT: Atraumatic NECK:No JVD CARDIOVASCULAR EXAMINATION: S 1S2 regular RESPIRATORY EXAMINATION: clear, no rales no wheezing ABDOMINAL EXAMINATION: soft BS +, mild tenderness no rebound EXTREMITIES: no edema SKIN: no rash NEUROLOGICAL EXAMINATION: non focal PSYCHIATRIC EXAMINATION: no psychosis LABORATORY DATA: Please see below. IMAGING: abdominal CT showed pancreatitis PROGNOSIS: Fair ACTIVITY: [As tolerated]. DIET: low fat diet DISPOSITION: 01 Home, Self-Care. DISCHARGE INSTRUCTIONS: No ETOH drinking ITEMS TO FOLLOWUP ON ON OUTPATIENT: PCP in 1-2 weeks DISCHARGE CONDITION: [Stable]. TIME SPENT ON DISCHARGE: Greater than 40 minutes. Vital Signs/I&Os Vital Signs Date Time Temp Pulse Resp B/P (MAP) Pulse Ox O2 Delivery O2 Flow Rate FiO2 12/05/18 17:11 18 12/05/18 14:00 98.0 120 140/66 (90) 94 12/02/18 08:53 Room Air I&O- Last 24 Hours up to 6 AM 12/06/18 05:59 Intake Total 1100 ml Output Total 800 ml Balance 300 ml Microbiology Microbiology 12/02/18 Blood Culture - Preliminary, Resulted No Growth after 72 hours. All specime... Discharge Medications Scheduled Amlodipine Besylate (Amlodipine Besylate) 10 Mg Tablet, 10 MG PO DAILY Lisinopril (Lisinopril) 10 Mg Tablet, 10 MG PO DAILY Scheduled PRN Acetaminophen (Acetaminophen) 325 Mg Tablet, 650 MG PO Q4-6H PRN for PAIN, (Reported) Hydromorphone HCl (Dilaudid) 4 Mg Tablet, 4 MG PO Q6HP PRN for pain Allergies Coded Allergies: No Known Allergies (Unverified , 03/07/18) BIJU ENGLAND MD December 06, 2018 07:21
== END 2018-12-05 17:40 | disposition home or self-care (01) | DRG 282 ==
LOC: M ED 01:23 → M ED INP 06:58 → M PCU 09:04 → M MSPAV 12-04 11:26
PROVIDERS: ADMIT Internal Medicine; ATTEND Hospitalist
DX: K85.20 Alcohol induced acute pancreatitis without necrosis or infection (principal); I10 Essential (primary) hypertension; Z79.899 Other long term (current) drug therapy

== ENCOUNTER 2019-01-09 13:10 | Emergency (ER) | payer MEDICAID, SELFPAY ==
[~2019-01-09 13:10] MED LIST changes: +AMLO10TA5 PO; +APAP325T4 PO; -ARTI99.0 OU; +ARTIDRO2 OU; +DILA4TAB13 PO
[2019-01-09] MEDS ORDERED: NS 1,000 ML IV SCH (13:26)
[2019-01-09] MEDS ORDERED: ONDANSETRON 4MG/2ML VIAL (J2405) IV ONE (13:30)
[2019-01-09] MEDS ORDERED: PANTOPRAZOLE 40MG INJ (PROTONIX) (C9113) IV ONE (13:30)
[2019-01-09 13:58] LABS: BASO % 0.3 % (0.0-1.0); EOS # 0.1 10^3/uL (0.0-0.50); EOS % 0.5 % (0.0-3.0); HEMATOCRIT 40.8 % (42.0-52.0); HEMOGLOBIN 14.8 g/dl (13.5-17.5); LYMPH # 1.4 10^3/uL (1.5-6.5); LYMPH % 13.1 % (24.0-44.0); MEAN CORPUSCULAR HEMOGLOBIN 36.9 pg (27.0-33.0); MEAN CORPUSCULAR HGB CONC 36.3 g/dl (32.0-36.5); MEAN CORPUSCULAR VOLUME 101.7 fl (80.0-96.0); MONO # 0.5 10^3/uL (0.0-0.8); MONO % 5.1 % (0.0-5.0); NEUTROPHILS # 8.4 10^3/uL (1.8-7.7); NEUTROPHILS % 80.5 % (36.0-66.0); PLATELET COUNT, AUTOMATED 326 10^3/uL (150-450); RED BLOOD COUNT 4.01 10^6/uL (4.30-6.10); WHITE BLOOD COUNT 10.4 10^3/uL (4.0-10.0)
[2019-01-09 14:37] LABS: INR 1.07; PROTHROMBIN TIME 13.6 SECONDS (11.8-14.0)
[2019-01-09 15:00] LABS: ALBUMIN 4.1 GM/DL (3.2-5.2); ALT/SGPT 38 U/L (12-78); BILIRUBIN,DIRECT 0.2 MG/DL (0.0-0.2); BILIRUBIN,TOTAL 0.7 MG/DL (0.2-1.0); BLOOD UREA NITROGEN 9 MG/DL (7-18); CALCIUM LEVEL 8.4 MG/DL (8.5-10.1); CARBON DIOXIDE LEVEL 26 MEQ/L (21-32); CHLORIDE LEVEL 105 MEQ/L (98-107); CK-MB VALUE MASS 1.8 NG/ML (<3.6); CPK CREATINE PHOSPHOKINASE 588 U/L (39-308); CREATININE FOR GFR 1.03 MG/DL (0.70-1.30); ETHYL ALCOHOL (ETHANOL) < 0.003 % (0.000-0.010); GLOMERULAR FILTRATION RATE > 60.0 (>60); GLUCOSE, FASTING 99 MG/DL (70-100); LIPASE 62 U/L (73-393); MB/CK RELATIVE INDEX 0.31 (< OR =4); POTASSIUM SERUM 3.7 MEQ/L (3.5-5.1); SODIUM LEVEL 140 MEQ/L (136-145); TOTAL PROTEIN 7.7 GM/DL (6.4-8.2); TROPONIN I < 0.02 NG/ML (< 0.10)
[2019-01-09] MEDS ORDERED: ISOVUE-370 76% 100ML VIAL (Q9967) As Ordered ONE (15:01)
[2019-01-09] MEDS ORDERED: KETOROLAC 30 MG/ML VIAL (J1885) IV ONE (15:30)
--- NOTE | 2019-01-09 15:36 | REP ---
Clinical: Abdominal pain and distension. Technique: Axial contrast enhanced images from the lung bases to the pubic symphysis using 100 ml Isovue 370 intravenous contrast material with coronal and sagittal re-formations. Comparison: 12/02/2018 - 03/08/2018 Findings: Hepatomegaly and fatty infiltration to the liver is appreciated with suspected hemangioma in the lateral segment left lobe unchanged through 03/08/2018. Spleen, pancreas, gallbladder, bilateral adrenal glands and kidneys are normal. Previously noted pancreatitis has resolved and there is no evidence for acute pancreatitis by current examination. Evaluation of the enteric system demonstrates mild/moderate submucosal fat deposition throughout the large bowel extending from the rectum to the cecum and possibly involving the terminal ileum. These findings are similar to multiple prior examinations and raise suspicion for inflammatory bowel disease/ulcerative colitis. There is no evidence for bowel obstruction. Pelvis demonstrates collapsed bladder and age appropriate prostate/seminal vesicles. Small fat containing inguinal hernia noted. No ascites. No free air. No adenopathy. Small fat containing periumbilical hernia identified and stable. Abdominal aorta without aneurysm or dissection. Musculoskeletal structures are intact. Lung bases are clear. Impression: 1. Findings raise the possibility of inflammatory bowel disease/ulcerative colitis without acute pericolonic inflammatory stranding or obstruction and GI consultation may be warranted. 2. Stable enhancing lesion within the left lobe of the liver suggests hemangioma. Diffuse hepatomegaly and hepatic steatosis unchanged. 3. No further acute abdominopelvic pathology appreciated. Electronically Signed by Ricardo Sotelo MD 01/09/2019 03:28 P
[2019-01-09] MEDS ORDERED: IBUP-1022 PO (15:53)
[2019-01-09] MEDS ORDERED: PEPC1TAB5 PO (15:53)
[2019-01-09 16:30] VITALS: BP 148/90
--- NOTE | 2019-01-13 14:15 | ED PDOC ---
Post-Departure Follow-Up certified letter sent to pt re formal reading of ct abd/p. please read. needs sp ecific follow up. see if pt obtained pcp and if so fax. 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
== END 2019-01-09 16:20 | disposition home or self-care (01) ==
LOC: M ED 13:10 → EDBD 13:10 → M ED 16:20
DX: R10.9 Unspecified abdominal pain (principal); I10 Essential (primary) hypertension; Z87.19 Personal history of other diseases of the digestive system; Z79.899 Other long term (current) drug therapy
CPT/HCPCS: 36415; 74177; 80048; 80076; 82550; 82553; 83605; 83690; 85025; 85610; 93041; 96361; 96374; 96375; 99284; C9113; G0480; J1885; J2405; Q9967

== ENCOUNTER 2020-07-26 16:01 | Inpatient (IN) | payer MEDICAID, OTHER ==
[~2020-07-26] VITALS: Ht 165.1 cm; Wt 102.5 kg
[~2020-07-26 16:01] MED LIST changes: -AMLO10TA5 PO; +AMLO1TAB25 PO; -ARTIDRO2 OU; +IBUP-1022 PO; +PEPC1TAB5 PO; +POLYOPD OU
[2020-07-26] MEDS ORDERED: NS 1,000 ML IV ONE ×2 (16:15→20:30)
[2020-07-26] MEDS ORDERED: BOOSTRIX/ADACEL VACCINE (DIPHTH/PERTUSS/ACELL/TETANUS) 0.5ML SYR IM ONE (16:15)
[2020-07-26] MEDS ORDERED: ceFAZolin SOD 1 GM in D5W MINI-BAG PLUS 50 ML IV ONE (16:15)
[2020-07-26 16:20] LABS: BASO % 0.4 % (0.0-1.0); EOS % 0.3 % (0.0-3.0); HEMATOCRIT 37.6 % (42.0-52.0); HEMOGLOBIN 12.2 g/dl (13.5-17.5); LYMPH # 2.2 10^3/uL (1.5-5.0); LYMPH % 30.7 % (24.0-44.0); MEAN CORPUSCULAR HEMOGLOBIN 32.3 pg (27.0-33.0); MEAN CORPUSCULAR HGB CONC 32.4 g/dl (32.0-36.5); MEAN CORPUSCULAR VOLUME 99.5 fl (80.0-96.0); MONO # 0.4 10^3/uL (0.0-0.8); MONO % 6.1 % (0.0-5.0); NEUTROPHILS # 4.4 10^3/uL (1.5-8.5); NEUTROPHILS % 62.2 % (36.0-66.0); PLATELET COUNT, AUTOMATED 346 10^3/uL (150-450); RED BLOOD COUNT 3.78 10^6/uL (4.30-6.10); WHITE BLOOD COUNT 7.1 10^3/uL (4.0-10.0)
[2020-07-26] MEDS ORDERED: ISOVUE-370 76% 100ML VIAL As Ordered ONE (16:21)
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
[2020-07-26 16:35] LABS: INR 0.97; PROTHROMBIN TIME 13.1 SECONDS (12.5-14.3)
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
[2020-07-26 16:53] LABS: ABG BASE EXCESS -6.1 (-2.0-2.0); ABG HCO3 18.2 MEQ/L (22.0-26.0); ABG O2 SATURATION 98.2 % (95.0-99.0); ABG PARTIAL PRESSURE CO2 32.1 mmHg (35.0-45.0); ABG PARTIAL PRESSURE O2 115.7 mmHg (75.0-100.0); ABG STANDARD HCO3 19.5 MEQ/L (22.0-26.0); ABG TOTAL CO2 19.2 MEQ/L (22.0-29.0); ABG pH (ARTERIAL) 7.371 UNITS (7.350-7.450)
[2020-07-26 16:58] LABS: ALT/SGPT 32 U/L (12-78); AMYLASE 84 U/L (25-115); BILIRUBIN,DIRECT < 0.1 MG/DL (0.0-0.2); BILIRUBIN,TOTAL 0.3 MG/DL (0.2-1.0); BLOOD UREA NITROGEN 10 MG/DL (7-18); CALCIUM LEVEL 8.5 MG/DL (8.5-10.1); CARBON DIOXIDE LEVEL 21 MEQ/L (21-32); CHLORIDE LEVEL 107 MEQ/L (98-107); CK-MB VALUE MASS 3.7 NG/ML (<3.6); CPK CREATINE PHOSPHOKINASE 498 U/L (39-308); CREATININE FOR GFR 1.11 MG/DL (0.70-1.30); ETHYL ALCOHOL (ETHANOL) 0.427 % (0.000-0.010); GLOMERULAR FILTRATION RATE > 60.0 (>60); GLUCOSE, FASTING 148 MG/DL (70-100); LIPASE 88 U/L (73-393); MB/CK RELATIVE INDEX 0.74 (< OR =4); POTASSIUM SERUM 4.3 MEQ/L (3.5-5.1); SODIUM LEVEL 142 MEQ/L (136-145); TOTAL PROTEIN 7.7 GM/DL (6.4-8.2); TROPONIN I < 0.02 NG/ML (< 0.10)
[2020-07-26] MEDS ORDERED: MORPHINE 2 MG/ML 1ML VIAL (J2270) IV ONE (17:15)
[2020-07-26] MEDS ORDERED: ONDANSETRON 4MG/2ML VIAL IV ONE (17:15)
[2020-07-26 17:30] LABS: ACETAMINOPHEN LEVEL < 2.0 UG/ML (10.0-30.0); THYROID STIMULATING HORMONE 0.551 uIU/ML (0.358-3.740)
[2020-07-26] MEDS ORDERED: LIDOCAINE W/EPINEPHRINE 1% 20ML VIAL As Ordered ONE (17:57)
[2020-07-26 18:07] LABS: AMPHETAMINES LEVEL URINE NEGATIVE (NEGATIVE); BARBITURATES URINE NEGATIVE (NEGATIVE); BENZODIAZEPINES URINE NEGATIVE (NEGATIVE); CANNABINOIDS URINE POSITIVE (NEGATIVE); COCAINE METABOLITE URINE NEGATIVE (NEGATIVE); METHADONE URINE NEGATIVE (NEGATIVE); OPIATES URINE NEGATIVE (NEGATIVE); PHENCYCLIDINE URINE NEGATIVE (NEGATIVE)
[2020-07-26 18:24] LABS: RSV AMPLIFICATION NEGATIVE (NEGATIVE)
[2020-07-26] MEDS ORDERED: MORPHINE 4 MG/ML 1ML VIAL/SYRINGE (J2270) IV ONE (19:30)
[2020-07-26] MEDS ORDERED: LIDOCAINE 1% MDV 20ML VIAL SC ONE (20:00)
[2020-07-26] MEDS ORDERED: PERCOCET 5MG/325MG TAB PO ONE (21:45)
[2020-07-26] MEDS: NS 1,000 ML IV SCH (23:09)
[2020-07-27] MEDS ORDERED: MORPHINE 4 MG/ML 1ML VIAL/SYRINGE (J2270) IV ONE (00:45)
[2020-07-27] MEDS ORDERED: IBUPROFEN 600MG TAB PO ONE (03:45)
[2020-07-27] MEDS ORDERED: lisinopriL 10 MG TAB PO ONE (04:00)
[2020-07-27] MEDS: NS 1,000 ML IV SCH ×2 (05:41→12:06)
[2020-07-27] MEDS ORDERED: LABETALOL 100MG/20ML VIAL IV STA (06:53)
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
[2020-07-27] MEDS ORDERED: cloNIDine 0.2 MG TAB PO ONE (07:45)
[2020-07-27] MEDS ORDERED: MAALOX 30 ML SUSP *UDC PO PRN (07:45)
[2020-07-27] MEDS: KETOROLAC 30 MG/ML 1ML VIAL IV ONE ×2 (08:30→08:48)
[2020-07-27] MEDS ORDERED: KETOROLAC 30 MG/ML 1ML VIAL IV ONE ×2 (08:30→08:45)
[2020-07-27] MEDS ORDERED: KETOROLAC 30 MG/ML 1ML VIAL As Ordered ONE (08:37)
[2020-07-27] MEDS: DOCUSATE SODIUM 100MG CAPSULE PO SCH ×2 (08:53→20:53)
[2020-07-27] MEDS: **hydrALAZINE** 50 MG TAB PO SCH ×2 (08:56→14:12)
--- NOTE | 2020-07-27 08:56 | ECGEPIP ---
[facility] - ED Test Date: 2020-07-26 Pat Name: OLEG COBB Department: Room: - Gender: Male Curriculum Development Manager: santiago : 1990 Requested By: Yaritza Mckeon Order Number: [id number] Reading MD: Rosalinda Holt Measurements Intervals Harrison Rate: 132 P: 63 GA: 127 QRS: 16 QRSD: 84 T: 76 QT: 305 QTc: 453 Interpretive Statements SINUS TACHYCARDIA ABNORMAL RHYTHM ECG NSTTW abnormalities baseline artifact may affect interpretation INCREASED RATE 06/05/18 Electronically Signed on 07-27-2020 8:56:21 EST by Rosalinda Holt
[2020-07-27] MEDS ORDERED: PERCOCET 5MG/325MG TAB PO ONE (09:00)
[2020-07-27] MEDS: IBUPROFEN 800 MG TAB PO PRN ×2 (12:02→20:52)
[2020-07-27] MEDS: ACETAMINOPHEN 500 MG TAB PO PRN ×2 (14:58→21:47)
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
[2020-07-27] MEDS: FOLIC ACID 1 MG TAB PO SCH (16:29)
[2020-07-27] MEDS: MULTIVITAMINS/MINERALS THERAP 1 TAB PO SCH (16:30)
[2020-07-27] MEDS: THIAMINE 100 MG TAB PO SCH ×2 (16:30→20:53)
[2020-07-27 17:00] VITALS: BP 201/125
[2020-07-27 17:30] VITALS: BP 190/110
[2020-07-27] MEDS ORDERED: lisinopriL 10 MG TAB PO SCH (17:45)
[2020-07-27] MEDS ORDERED: PERCOCET 5MG/325MG TAB PO PRN (17:45)
[2020-07-27] MEDS: PERCOCET 5MG/325MG TAB PO PRN (17:53)
[2020-07-27] MEDS: **hydrALAZINE HCL** 25 MG TAB PO SCH (17:53)
[2020-07-27] MEDS: LORazepam 2 MG TAB PO PRN ×2 (17:54→21:47)
[2020-07-27 19:35] VITALS: BP 188/98
[2020-07-27] MEDS ORDERED: amLODIPine 5 MG TAB PO ONE (20:00)
[2020-07-27] MEDS: CEPHALEXIN 500 MG CAP PO SCH (20:52)
[2020-07-27 21:42] VITALS: BP 191/103
[2020-07-27 21:43] VITALS: BP 191/103
[2020-07-27] MEDS ORDERED: traMADol 50 MG TAB PO ONE (23:00)
[2020-07-27 23:58] VITALS: BP 183/101
[2020-07-28] VITALS (15 sets, daily range): BP systolic 143–195; BP diastolic 72–113
[2020-07-28] MEDS: **hydrALAZINE HCL** 25 MG TAB PO SCH ×5 (00:03→23:38)
[2020-07-28] MEDS: PERCOCET 5MG/325MG TAB PO PRN ×4 (02:05→22:20)
[2020-07-28] MEDS: LORazepam 2 MG TAB PO PRN ×3 (02:05→20:51)
[2020-07-28] MEDS ORDERED: KETOROLAC 30 MG/ML 1ML VIAL IV ONE (04:30)
[2020-07-28] MEDS ORDERED: hydrALAZINE 20MG/ML 1ML VIAL (J0360 PER 20MG) IV ONE (04:30)
[2020-07-28 08:20] LABS: BASO % 0.3 % (0.0-1.0); EOS # 0.1 10^3/uL (0.0-0.5); EOS % 0.9 % (0.0-3.0); HEMATOCRIT 32.3 % (42.0-52.0); HEMOGLOBIN 10.4 g/dl (13.5-17.5); LYMPH # 1.3 10^3/uL (1.5-5.0); MEAN CORPUSCULAR HGB CONC 32.2 g/dl (32.0-36.5); MEAN CORPUSCULAR VOLUME 99.4 fl (80.0-96.0); MONO # 0.8 10^3/uL (0.0-0.8); MONO % 9.4 % (0.0-5.0); NEUTROPHILS # 5.8 10^3/uL (1.5-8.5); NEUTROPHILS % 72.9 % (36.0-66.0); PLATELET COUNT, AUTOMATED 263 10^3/uL (150-450); RED BLOOD COUNT 3.25 10^6/uL (4.30-6.10)
[2020-07-28] MEDS: FOLIC ACID 1 MG TAB PO SCH (08:51)
[2020-07-28] MEDS: MULTIVITAMINS/MINERALS THERAP 1 TAB PO SCH (08:52)
[2020-07-28] MEDS: CEPHALEXIN 500 MG CAP PO SCH ×2 (08:52→20:50)
[2020-07-28] MEDS: lisinopriL 10 MG TAB PO SCH ×2 (08:52→20:50)
[2020-07-28] MEDS: THIAMINE 100 MG TAB PO SCH ×2 (08:52→20:49)
[2020-07-28] MEDS: amLODIPine 10 MG TAB PO SCH (08:52)
[2020-07-28] MEDS: DOCUSATE SODIUM 100MG CAPSULE PO SCH ×2 (08:53→20:51)
[2020-07-28] MEDS: ACETAMINOPHEN 500 MG TAB PO PRN (08:53)
[2020-07-28 09:20] LABS: BLOOD UREA NITROGEN 4 MG/DL (7-18); CALCIUM LEVEL 8.1 MG/DL (8.5-10.1); CARBON DIOXIDE LEVEL 29 MEQ/L (21-32); CHLORIDE LEVEL 103 MEQ/L (98-107); CREATININE FOR GFR 0.71 MG/DL (0.70-1.30); GLOMERULAR FILTRATION RATE > 60.0 (>60); GLUCOSE, FASTING 124 MG/DL (70-100); POTASSIUM SERUM 3.2 MEQ/L (3.5-5.1); SODIUM LEVEL 138 MEQ/L (136-145)
[2020-07-28] MEDS ORDERED: SLF 3 ML SYR IV PRN (10:00)
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
[2020-07-28] MEDS ORDERED: PERCOCET 5MG/325MG TAB PO PRN (11:30)
[2020-07-28] MEDS ORDERED: POTASSIUM CHLORIDE 10 MEQ SR TABLET PO ONE (12:00)
[2020-07-28] MEDS: ENOXAPARIN 40MG/0.4ML SYRINGE (J1650 PER 10MG) SC SCH (12:33)
[2020-07-28] MEDS: SLF 3 ML SYR IV SCH ×2 (12:35→21:54)
[2020-07-28] MEDS ORDERED: cloNIDine 0.1MG TABLET PO ONE (19:30)
[2020-07-28] MEDS: IBUPROFEN 800 MG TAB PO PRN (23:37)
[2020-07-29] VITALS (10 sets, daily range): BP systolic 131–164; BP diastolic 83–105
[2020-07-29] MEDS ORDERED: MORPHINE 2 MG/ML 1ML VIAL (J2270) IV ONE (00:30)
[2020-07-29] MEDS: PERCOCET 5MG/325MG TAB PO PRN ×3 (04:37→16:45)
[2020-07-29 05:03] LABS: BASO % 0.1 % (0.0-1.0); EOS # 0.1 10^3/uL (0.0-0.5); EOS % 1.3 % (0.0-3.0); HEMATOCRIT 31.7 % (42.0-52.0); HEMOGLOBIN 10.2 g/dl (13.5-17.5); LYMPH % 27.1 % (24.0-44.0); MEAN CORPUSCULAR HEMOGLOBIN 31.8 pg (27.0-33.0); MEAN CORPUSCULAR HGB CONC 32.2 g/dl (32.0-36.5); MEAN CORPUSCULAR VOLUME 98.8 fl (80.0-96.0); MONO # 0.7 10^3/uL (0.0-0.8); MONO % 9.2 % (0.0-5.0); NEUTROPHILS # 4.6 10^3/uL (1.5-8.5); NEUTROPHILS % 61.8 % (36.0-66.0); PLATELET COUNT, AUTOMATED 304 10^3/uL (150-450); RED BLOOD COUNT 3.21 10^6/uL (4.30-6.10); WHITE BLOOD COUNT 7.5 10^3/uL (4.0-10.0)
[2020-07-29 05:32] LABS: BLOOD UREA NITROGEN 4 MG/DL (7-18); CALCIUM LEVEL 8.5 MG/DL (8.5-10.1); CARBON DIOXIDE LEVEL 29 MEQ/L (21-32); CHLORIDE LEVEL 100 MEQ/L (98-107); CREATININE FOR GFR 0.66 MG/DL (0.70-1.30); GLOMERULAR FILTRATION RATE > 60.0 (>60); GLUCOSE, FASTING 96 MG/DL (70-100); POTASSIUM SERUM 3.3 MEQ/L (3.5-5.1); SODIUM LEVEL 135 MEQ/L (136-145)
[2020-07-29] MEDS: **hydrALAZINE HCL** 25 MG TAB PO SCH ×3 (06:13→16:45)
[2020-07-29] MEDS: SLF 3 ML SYR IV SCH ×3 (06:14→21:27)
[2020-07-29] MEDS: cloNIDine 0.1MG TABLET PO SCH ×3 (06:14→21:26)
[2020-07-29] MEDS ORDERED: POTASSIUM CHLORIDE 10 MEQ SR TABLET PO ONE (09:00)
[2020-07-29] MEDS: FOLIC ACID 1 MG TAB PO SCH (09:18)
[2020-07-29] MEDS: ACETAMINOPHEN 500 MG TAB PO PRN ×2 (09:19→21:27)
[2020-07-29] MEDS: CEPHALEXIN 500 MG CAP PO SCH ×2 (09:19→21:25)
[2020-07-29] MEDS: DOCUSATE SODIUM 100MG CAPSULE PO SCH ×2 (09:20→21:25)
[2020-07-29] MEDS: THIAMINE 100 MG TAB PO SCH ×2 (09:20→21:26)
[2020-07-29] MEDS: MULTIVITAMINS/MINERALS THERAP 1 TAB PO SCH (09:20)
[2020-07-29] MEDS: lisinopriL 10 MG TAB PO SCH ×2 (09:20→21:26)
[2020-07-29] MEDS: amLODIPine 10 MG TAB PO SCH (09:21)
[2020-07-29] MEDS: ENOXAPARIN 40MG/0.4ML SYRINGE (J1650 PER 10MG) SC SCH (09:21)
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
[2020-07-29] MEDS: IBUPROFEN 800 MG TAB PO PRN (13:11)
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
[2020-07-29] MEDS ORDERED: LORazepam 2 MG TAB PO ONE (18:43)
[2020-07-30] MEDS: PERCOCET 5MG/325MG TAB PO PRN ×4 (00:08→20:57)
[2020-07-30 06:00] VITALS: BP 147/91
[2020-07-30] MEDS: SLF 3 ML SYR IV SCH (06:00)
[2020-07-30] MEDS: **hydrALAZINE HCL** 25 MG TAB PO SCH ×4 (06:00→18:00)
[2020-07-30] MEDS: cloNIDine 0.1MG TABLET PO SCH ×4 (06:00→20:59)
[2020-07-30 06:26] LABS: BASO % 0.4 % (0.0-1.0); EOS # 0.1 10^3/uL (0.0-0.5); EOS % 1.5 % (0.0-3.0); HEMOGLOBIN 10.4 g/dl (13.5-17.5); LYMPH % 24.4 % (24.0-44.0); MEAN CORPUSCULAR HEMOGLOBIN 32.3 pg (27.0-33.0); MEAN CORPUSCULAR HGB CONC 32.5 g/dl (32.0-36.5); MEAN CORPUSCULAR VOLUME 99.4 fl (80.0-96.0); MONO # 0.7 10^3/uL (0.0-0.8); MONO % 9.1 % (0.0-5.0); NEUTROPHILS # 5.2 10^3/uL (1.5-8.5); NEUTROPHILS % 64.1 % (36.0-66.0); PLATELET COUNT, AUTOMATED 340 10^3/uL (150-450); RED BLOOD COUNT 3.22 10^6/uL (4.30-6.10); WHITE BLOOD COUNT 8.1 10^3/uL (4.0-10.0)
[2020-07-30 06:51] LABS: BLOOD UREA NITROGEN 6 MG/DL (7-18); CALCIUM LEVEL 8.9 MG/DL (8.5-10.1); CARBON DIOXIDE LEVEL 27 MEQ/L (21-32); CHLORIDE LEVEL 100 MEQ/L (98-107); CREATININE FOR GFR 0.68 MG/DL (0.70-1.30); GLOMERULAR FILTRATION RATE > 60.0 (>60); GLUCOSE, FASTING 92 MG/DL (70-100); POTASSIUM SERUM 3.2 MEQ/L (3.5-5.1); SODIUM LEVEL 135 MEQ/L (136-145)
[2020-07-30] MEDS: FOLIC ACID 1 MG TAB PO SCH (08:21)
[2020-07-30] MEDS: CEPHALEXIN 500 MG CAP PO SCH ×2 (08:21→20:59)
[2020-07-30] MEDS: MULTIVITAMINS/MINERALS THERAP 1 TAB PO SCH (08:21)
[2020-07-30] MEDS: DOCUSATE SODIUM 100MG CAPSULE PO SCH ×2 (08:21→20:59)
[2020-07-30] MEDS: amLODIPine 10 MG TAB PO SCH (08:21)
[2020-07-30] MEDS: lisinopriL 10 MG TAB PO SCH ×2 (08:21→20:59)
[2020-07-30] MEDS: ENOXAPARIN 40MG/0.4ML SYRINGE (J1650 PER 10MG) SC SCH (08:22)
--- NOTE | 2020-07-30 12:37 | IPN ---
PROGRESS NOTE DATE: 07/30/2020 Patient was unable to tolerate MR scanning of the left lower extremity to evaluate for nerve and/or tendon injury on the medial side of the leg, concerning for tibial nerve disruption especially. Thus, I think we have strong enough clinical indication that there is significant damage to the tibial nerve that I recommend this be seen by a physician who performs nerve and artery repair, such as a plastic surgeon. With the assistance of Dr. Steward, we talked to the activity coordinator at [facility], and I talked to Dr. Johnny Galloway, who recommends he see the plastic surgeon, Dr. Hall. This could be done as an outpatient, so those arrangements were made for him to be seen as an outpatient with Dr. Chung' office, and I gave the contact information to Dr. Galloway, who will forward them on to Dr. Chung' office for coordinating followup care.
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
[2020-07-30 22:00] VITALS: BP 164/94
[2020-07-31] MEDS: **hydrALAZINE HCL** 25 MG TAB PO SCH ×3 (00:35→12:39)
[2020-07-31] MEDS: PERCOCET 5MG/325MG TAB PO PRN ×2 (04:37→12:37)
[2020-07-31 06:00] VITALS: BP 164/94
[2020-07-31] MEDS: cloNIDine 0.1MG TABLET PO SCH (06:00)
[2020-07-31 06:15] VITALS: BP 148/89
[2020-07-31] MEDS ORDERED: POTASSIUM CHLORIDE 10 MEQ SR TABLET PO SCH (09:00)
[2020-07-31 09:05] LABS: BASO % 0.2 % (0.0-1.0); EOS # 0.1 10^3/uL (0.0-0.5); EOS % 1.2 % (0.0-3.0); HEMATOCRIT 32.8 % (42.0-52.0); HEMOGLOBIN 10.7 g/dl (13.5-17.5); LYMPH # 2.2 10^3/uL (1.5-5.0); LYMPH % 23.8 % (24.0-44.0); MEAN CORPUSCULAR HEMOGLOBIN 31.9 pg (27.0-33.0); MEAN CORPUSCULAR HGB CONC 32.6 g/dl (32.0-36.5); MEAN CORPUSCULAR VOLUME 97.9 fl (80.0-96.0); MONO # 0.9 10^3/uL (0.0-0.8); MONO % 9.8 % (0.0-5.0); NEUTROPHILS % 64.5 % (36.0-66.0); PLATELET COUNT, AUTOMATED 390 10^3/uL (150-450); RED BLOOD COUNT 3.35 10^6/uL (4.30-6.10); WHITE BLOOD COUNT 9.3 10^3/uL (4.0-10.0)
[2020-07-31 09:30] LABS: BLOOD UREA NITROGEN 7 MG/DL (7-18); CALCIUM LEVEL 8.7 MG/DL (8.5-10.1); CARBON DIOXIDE LEVEL 27 MEQ/L (21-32); CHLORIDE LEVEL 102 MEQ/L (98-107); CREATININE FOR GFR 0.76 MG/DL (0.70-1.30); GLOMERULAR FILTRATION RATE > 60.0 (>60); GLUCOSE, FASTING 113 MG/DL (70-100); POTASSIUM SERUM 3.4 MEQ/L (3.5-5.1); SODIUM LEVEL 137 MEQ/L (136-145)
[2020-07-31] MEDS: lisinopriL 10 MG TAB PO SCH (09:53)
[2020-07-31] MEDS: FOLIC ACID 1 MG TAB PO SCH (09:54)
[2020-07-31] MEDS: amLODIPine 10 MG TAB PO SCH (09:54)
[2020-07-31] MEDS: MULTIVITAMINS/MINERALS THERAP 1 TAB PO SCH (09:55)
[2020-07-31] MEDS: CEPHALEXIN 500 MG CAP PO SCH (09:55)
[2020-07-31] MEDS: DOCUSATE SODIUM 100MG CAPSULE PO SCH (09:56)
[2020-07-31] MEDS: ENOXAPARIN 40MG/0.4ML SYRINGE (J1650 PER 10MG) SC SCH (09:56)
[2020-07-31] MEDS ORDERED: PERCOCET PO ×2 (11:56→13:28)
[2020-07-31] MEDS ORDERED: CLONI1TA PO ×2 (11:56→13:28)
[2020-07-31] MEDS ORDERED: LISI10TA4 PO ×2 (11:56→13:28)
[2020-07-31] MEDS ORDERED: AMLO1TAB25 PO ×2 (11:56→13:28)
[2020-07-31 12:39] VITALS: BP 150/90
[2020-07-31 14:00] VITALS: BP 148/83
== END 2020-07-31 14:00 | disposition home or self-care (01) | DRG 199 ==
LOC: M ED 16:01 → M ED INP 07-27 07:38 → M MS5PR 07-27 16:45 → M PCU 07-28 05:26 → M MS5PR 07-29 12:15
PROVIDERS: ADMIT Internal Medicine Nephrology; ATTEND Internal Medicine Nephrology
DX: I16.0 Hypertensive urgency (principal); E87.2 Acidosis; S21.90XA Unspecified open wound of unspecified part of thorax, initial encounter; E66.01 Morbid (severe) obesity due to excess calories; S71.101A Unspecified open wound, right thigh, initial encounter; S81.801A Unspecified open wound, right lower leg, initial encounter; F10.129 Alcohol abuse with intoxication, unspecified; Z91.14 Patient's other noncompliance with medication regimen; E87.6 Hypokalemia; S01.90XA Unspecified open wound of unspecified part of head, initial encounter; F17.210 Nicotine dependence, cigarettes, uncomplicated; F12.90 Cannabis use, unspecified, uncomplicated; X99.8XXA Assault by other sharp object, initial encounter; Y92.009 Unspecified place in unspecified non-institutional (private) residence as the place of occurrence of the external cause; I10 Essential (primary) hypertension

== ENCOUNTER 2020-08-03 16:58 | Emergency (ER) | payer OTHER ==
[~2020-08-03] VITALS: Ht 165.1 cm; Wt 90.9 kg
[~2020-08-03 16:58] MED LIST changes: +CLONI1TA PO; +LISI10TA22 PO; -LISI10TA4 PO
[2020-08-03 19:01] LABS: BASO % 0.3 % (0.0-1.0); EOS # 0.1 10^3/uL (0.0-0.5); EOS % 1.3 % (0.0-3.0); HEMATOCRIT 36.1 % (42.0-52.0); HEMOGLOBIN 11.6 g/dl (13.5-17.5); LYMPH # 1.9 10^3/uL (1.5-5.0); LYMPH % 20.8 % (24.0-44.0); MEAN CORPUSCULAR HEMOGLOBIN 31.8 pg (27.0-33.0); MEAN CORPUSCULAR HGB CONC 32.1 g/dl (32.0-36.5); MEAN CORPUSCULAR VOLUME 98.9 fl (80.0-96.0); MONO % 11.3 % (0.0-5.0); NEUTROPHILS % 65.6 % (36.0-66.0); PLATELET COUNT, AUTOMATED 525 10^3/uL (150-450); RED BLOOD COUNT 3.65 10^6/uL (4.30-6.10); WHITE BLOOD COUNT 9.2 10^3/uL (4.0-10.0)
[2020-08-03] MEDS ORDERED: ACETAMINOPHEN 500 MG TAB PO ONE (19:15)
[2020-08-03 19:21] LABS: ERYTHROCYTE SEDIMENTATION RATE 37 mm/hr (0-15)
[2020-08-03 19:45] LABS: BLOOD UREA NITROGEN 15 MG/DL (7-18); C REACTIVE PROTEIN QUANTITATIV 0.49 MG/DL (0.00-0.30); CALCIUM LEVEL 9.8 MG/DL (8.5-10.1); CARBON DIOXIDE LEVEL 28 MEQ/L (21-32); CHLORIDE LEVEL 101 MEQ/L (98-107); CREATININE FOR GFR 0.95 MG/DL (0.70-1.30); GLOMERULAR FILTRATION RATE > 60.0 (>60); GLUCOSE, FASTING 100 MG/DL (70-100); SODIUM LEVEL 134 MEQ/L (136-145)
--- NOTE | 2020-08-03 20:25 | REP ---
INDICATION: R ankle pain. COMPARISON: None. TECHNIQUE: Four views FINDINGS: Four views of the right ankle demonstrate intact ankle mortise. No fracture or subluxation is seen. There is an orthopedic fixation device in the subtalar joint consistent with subtalar joint arthrodesis. Bones, joints and soft tissues are otherwise unremarkable. IMPRESSION: No acute bony abnormality. Orthopedic fixation device is seen in the subtalar joint. There is also a metallic pin in the distal 1st metatarsal. <Electronically signed by Adarsh Casillas > 08/03/202021
--- NOTE | 2020-08-03 20:42 | REPVR ---
PROCEDURE INFORMATION: Exam: US Duplex Right Lower Extremity Veins, Limited Exam date and time: 08/03/2020 8:24 PM Age: 30 years old Clinical indication: Pain; Leg, upper and leg, lower; Right; Additional info: R/O dvt TECHNIQUE: Imaging protocol: Real-time Duplex ultrasound of the Right Lower Extremity with 2-D foster scale, color Doppler flow and spectral waveform analysis with image documentation. Limited exam was focused on the right lower extremity veins. COMPARISON: No relevant prior studies available. FINDINGS: Right deep veins: Unremarkable. The common femoral, femoral, proximal profunda femoral and popliteal veins are patent without thrombus. Normal Doppler waveforms. Normal compressibility and/or augmentation response. Right superficial veins: Unremarkable. Saphenofemoral junction is patent without thrombus. Soft tissues: Unremarkable. IMPRESSION: No evidence of deep vein thrombosis. Electronically signed by: Jose Costa On 08/03/2020 20:42:37 PM
[2020-08-03] MEDS ORDERED: ALPRAZolam 0.5 MG TAB PO ONE (21:00)
[2020-08-03] MEDS ORDERED: KETOROLAC 60MG 2ML VIAL IM ONE (22:30)
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
[2020-08-03] MEDS ORDERED: ISOVUE-370 76% 100ML VIAL As Ordered ONE (23:03)
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
[2020-08-04] MEDS ORDERED: NAPR-837 PO (00:24)
[2020-08-04 00:44] VITALS: BP 122/82
[2020-08-04] MEDS ORDERED: NEOSPORIN OINT 0.9 GM PKT TOP ONE (00:45)
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
[2020-08-16] MEDS ORDERED: LISI10TA22 PO (11:07)
== END 2020-08-04 00:45 | disposition home or self-care (01) ==
LOC: M ED 16:58
DX: M79.661 Pain in right lower leg (principal); S71.101D Unspecified open wound, right thigh, subsequent encounter; S81.801D Unspecified open wound, right lower leg, subsequent encounter; X99.8XXD Assault by other sharp object, subsequent encounter; Y92.009 Unspecified place in unspecified non-institutional (private) residence as the place of occurrence of the external cause; Y93.9 Activity, unspecified; Y99.9 Unspecified external cause status; I10 Essential (primary) hypertension; K21.9 Gastro-esophageal reflux disease without esophagitis; E66.01 Morbid (severe) obesity due to excess calories; F10.10 Alcohol abuse, uncomplicated; F17.200 Nicotine dependence, unspecified, uncomplicated; Z79.899 Other long term (current) drug therapy
CPT/HCPCS: 36415; 73610; 73706; 73718; 80048; 85025; 85652; 86140; 93971; 96372; 99284; J1885; Q9967

== ENCOUNTER 2020-08-16 10:59 | Emergency (ER) | payer OTHER ==
[~2020-08-16] VITALS: Ht 165.1 cm; Wt 102.3 kg
[~2020-08-16 10:59] MED LIST changes: -LISI10TA22 PO; +LISI10TA4 PO; +NAPR-837 PO
--- OUTSIDE RECORDS SUMMARY | 2020-08-16 11:06 | CCD | Summary of Care ---
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 Name Role Phone PCP Unavailable Encounter Details Care Team Description Date Type Department 07/30/2020 [facility] TRANSFER CE NTER Encounter [address] [place] [address] Allergies Not on Filedocumented as of this encounter (statuses as of 08/14/2020) Medications Not on filedocumented as of this encounter (statuses as of 08/14/2020) Active Problems Not on filedocumented as of this encounter (statuses as of 08/14/2020) Social History Date Tobacco Use Types Packs/Day Years Used Never Assessed Sex Assigned at Date Recorded Not on file Date Recorded COVID-19 Exposure Response 07/30/2020 9:01 AM EST In the last month, have you been in contact with No / Unsure someone who was confirmed or suspected to have Coronavirus / COVID-19? documented as of this encounter Last Filed Vital Signs Not on filedocumented in this encounter Plan of Treatment Care Team Description Date Type Specialty Renaldo Lui PA [address] [place] [address] [phone] 08/16/2020 Office Visit Orthopedic Surgery Health Maintenance Due Date Last Done Comments MMR Vaccines (1 of 1 - 1991 Standard series) Varicella Vaccines (1 of 1991 2 - 2-dose childhood series) DTaP,Tdap,and Td Vaccines 1997 (1 - Tdap) HIV Screening 2003 Influenza Vaccine 04/15/2020 Pneumococcal Vaccine: 65+ 2055 Years (1 of 1 - PPSV23) HIB Vaccines Aged Out No longer eligible based on patient's age to complete this topic Hepatitis A Vaccines Aged Out No longer eligibl e based on patient's age to complete this topic Hepatitis B Vaccines Aged Out No longer eligibl e based on patient's age to complete this topic IPV Vaccines Aged Out No longer eligible based on patient's age to complete this topic Pneumococcal Vaccine: Aged Out No longer eligib le based on patient's age to Pediatrics (0 to 5 Years) complete this topic and At-Risk Patients (6 to 64 Years) documented as of this encounter Results Not on filedocumented in this encounter
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
[2020-08-16] MEDS ORDERED: LISI10TA4 PO (11:07)
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
[2020-08-16] MEDS ORDERED: NS 1,000 ML IV ONE (11:45)
[2020-08-16] MEDS ORDERED: KETOROLAC 30 MG/ML 1ML VIAL IV ONE (11:45)
--- NOTE | 2020-08-16 12:42 | REP ---
INDICATION: sob, cough. COMPARISON: Comparison chest x-ray July 26, 2020. TECHNIQUE: Two views.. FINDINGS: The lungs are well inflated and free of infiltrate. The pleural angles are sharp. The heart size is normal. Pulmonary vasculature is not increased. No significant bony abnormality is seen. IMPRESSION: Negative chest x-ray. <Electronically signed by Adarsh Casillas > 08/16/20 [id number]
[2020-08-16 13:55] LABS: BASO % 0.3 % (0.0-1.0); EOS % 0.4 % (0.0-3.0); HEMATOCRIT 39.4 % (42.0-52.0); HEMOGLOBIN 12.2 g/dl (13.5-17.5); LYMPH % 20.3 % (24.0-44.0); MEAN CORPUSCULAR VOLUME 96.8 fl (80.0-96.0); MONO # 0.7 10^3/uL (0.0-0.8); NEUTROPHILS % 71.6 % (36.0-66.0); PLATELET COUNT, AUTOMATED 392 10^3/uL (150-450); RED BLOOD COUNT 4.07 10^6/uL (4.30-6.10); WHITE BLOOD COUNT 9.7 10^3/uL (4.0-10.0)
[2020-08-16] MEDS ORDERED: KETOROLAC 60MG 2ML VIAL IM ONE (14:00)
[2020-08-16 14:26] LABS: ALBUMIN 4.2 GM/DL (3.2-5.2); ALT/SGPT 37 U/L (12-78); BILIRUBIN,DIRECT 0.2 MG/DL (0.0-0.2); BILIRUBIN,TOTAL 0.8 MG/DL (0.2-1.0); BLOOD UREA NITROGEN 11 MG/DL (7-18); CALCIUM LEVEL 9.7 MG/DL (8.5-10.1); CARBON DIOXIDE LEVEL 23 MEQ/L (21-32); CHLORIDE LEVEL 106 MEQ/L (98-107); CREATININE FOR GFR 0.83 MG/DL (0.70-1.30); GLOMERULAR FILTRATION RATE > 60.0 (>60); GLUCOSE, FASTING 85 MG/DL (70-100); LIPASE 74 U/L (73-393); POTASSIUM SERUM 4.3 MEQ/L (3.5-5.1); SODIUM LEVEL 140 MEQ/L (136-145); TOTAL PROTEIN 7.3 GM/DL (6.4-8.2)
[2020-08-16 16:40] VITALS: BP 164/78
== END 2020-08-16 17:01 | disposition home or self-care (01) ==
LOC: M ED 10:59
DX: Z48.02 Encounter for removal of sutures (principal); R05 Cough; R19.7 Diarrhea, unspecified; R10.9 Unspecified abdominal pain; E11.9 Type 2 diabetes mellitus without complications; I10 Essential (primary) hypertension; R51.9 Headache, unspecified; K21.9 Gastro-esophageal reflux disease without esophagitis; K52.9 Noninfective gastroenteritis and colitis, unspecified; F17.200 Nicotine dependence, unspecified, uncomplicated; Z79.899 Other long term (current) drug therapy
CPT/HCPCS: 36415; 71046; 80048; 80076; 81001; 83690; 85025; 96372; 99283; J1885